=== PATIENT | female | born 1975 | race Caucasian/White ===

== ENCOUNTER → 2017-03-25 16:52 | Outpatient (CLI) | payer BC, SELFPAY ==
--- NOTE | 2017-03-25 17:00 | RAD_ITS ---
STUDY: X-RAY - SACRUM/COCCYX REASON FOR EXAM: Female, 42 years old. Pelvic pain after skiing TECHNIQUE: 3 view(s) of the sacrum and coccyx were obtained. COMPARISON: None. FINDINGS: Normal bilateral sacroiliac joints. Normal visualized sacral ala and fused sacral bodies. Normal sacrococcygeal junction with a normal angulation. Normal coccygeal segments. The presacral soft tissue structures are unremarkable. Tubal ligation RAD/Sacrum-Coccyx min 2 Views IMPRESSION: Normal x-rays of the sacrum and coccyx. Electronically Signed: Antonio Patel DO at 17:26 EST Tel , Service support ,
--- NOTE | 2017-03-25 17:00 | RAD_ITS ---
STUDY: X-RAY - PELVIS REASON FOR EXAM: Female, 42 years old. Pelvic pain TECHNIQUE: One view of the pelvis was obtained. COMPARISON: None. FINDINGS: There is a non-specific bowel gas pattern. Normal visualized soft tissue structures. Normal bilateral iliac wings, sacroiliac joints and visualized sacrum. Normal visualized bilateral superior and inferior pubic rami. Normal pubic symphysis. Normal ischial tuberosities. Normal visualized right femoral head. Normal right acetabulum. Normal right hip joint. Normal visualized left femoral head. Normal left acetabulum. Normal left hip joint. RAD/Pelvis 1 or 2 Views IMPRESSION: Normal x-ray examination of the pelvis. Electronically Signed: Antonio Patel DO at 17:29 EST Tel , Service support ,
--- NOTE | 2017-03-25 17:00 | RAD_ITS ---
STUDY: X-RAY - LUMBAR SPINE REASON FOR EXAM: Female, 42 years old. Low back pain after skiing TECHNIQUE: 5 view(s) of the lumbar spine were obtained. COMPARISON: None FINDINGS: Normal lumbar lordosis. There is no substantial scoliosis. There is a normal alignment of the vertebrae. Normal vertebral bodies and endplates. Normal disc space heights. The soft tissue structures are unremarkable. RAD/L/S Spine Min 4 Views IMPRESSION: Normal x-ray examination of the lumbar spine. Electronically Signed: Antonio Patel DO at 17:28 EST Tel , Service support ,
--- NOTE | 2017-03-25 17:00 | RAD_ITS ---
STUDY: X-RAY - LEFT FEMUR REASON FOR STUDY: Female, 42 years old. Left femur pain after skiing TECHNIQUE: Radiological exam, femur, minimum 2 views COMPARISON: None. FINDINGS: Normal visualized femur. Normal visualized soft tissue structure. RAD/Femur Min 2 Views IMPRESSION: Normal x-ray examination of the femur. Electronically Signed: Antonio Patel DO at 17:26 EST Tel , Service support ,
== END ==
PROVIDERS: Family Provider Internal Medicine; PCP Internal Medicine; Visit Provider Internal Medicine
DX: M54.5 Low back pain (principal); M25.552 Pain in left hip
CPT/HCPCS: 72110; 72170; 72220; 73552

== ENCOUNTER → 2017-04-04 14:30 | Outpatient (CLI) | payer BC, SELFPAY ==
--- NOTE | 2017-04-04 15:15 | EMB_PTH ---
PATIENT: LEXII ACOSTA LOC: [facility] U#:[id number] AGE/SX: 49/F ROOM: RE04/04/[address]: Dr. Eliseo Huynh MD : 1975 BED: DIS: SPEC #: [id number] RECD: 04/04/17 19:24 STATUS: GASPER JULES #: [id number] MORRIS: 04/04/17 15:[address]: Eliseo Huynh DEPT: SURGICAL PATHOLOGY RECD BY: Danny Fritz ENTERED: 04/05/17 12:06 SP TYPE: ENDOM BX/C CHYNA DR: Dr. Minoo Miller, DO Tissues: Endometrium, NOS Procedures: Surgery Specimen Level IV HEADER OPERATION: Endometrial biopsy PRE-OP DIAGNOSIS: N93.9 TISSUE SUBMITTED: Endometrial biopsy MICROSCOPIC DIAGNOSIS Endometrium, biopsy: Secretory endometrium with glandular and stromal breakdown. AM:marce 04/08/17 MICROSCOPIC DESCRIPTION Slides are reviewed. GROSS DESCRIPTION Received in fixative is one container labeled with the patient's name and designated endometrial biopsy. The specimen consists of multiple irregular and elongated fragments of red-santoyo soft tissue that in aggregate measure 3 x 2 x 0.2 cm. The specimen is totally submitted in one cassette. / AM:marce 04/05/17 TC:5 CPT: 00143
[2017-04-11 11:12] LABS: HPV Reflexed? NOT INDICATED
== END ==
PROVIDERS: Family Provider Internal Medicine; PCP Internal Medicine; Visit Provider Obstetrics & Gynecology
DX: Z12.4 Encounter for screening for malignant neoplasm of cervix (principal); N93.9 Abnormal uterine and vaginal bleeding, unspecified
CPT/HCPCS: 88175; 88305; G0145

== ENCOUNTER → 2017-06-12 08:27 | Outpatient (CLI) | payer BC, SELFPAY ==
--- NOTE | 2017-06-12 08:30 | US_ITS ---
STUDY: ABDOMINAL ULTRASOUND - LEFT UPPER QUADRANT REASON FOR VISIT: Female, 42 years old. Thrombocytosis. TECHNIQUE: Ultrasound evaluation of the right upper quadrant was performed with real-time and static zaldivar-scale imaging. TECHNICAL QUALITY: Adequate. COMPARISON: None. FINDINGS: Spleen: The spleen is not enlarged. It measures 9.8 cm x 2.5 cm x 3.5 cm. It is unremarkable. Left Kidney: Normal size of the left kidney. The left kidney measures 9 cm x 5.3 cm x 5.7 cm. Normal renal cortex. The left cortex measures 1.3 cm. There is no demonstrated renal mass or cyst. There is no left hydronephrosis. US/Spleen IMPRESSION: Normal left upper quadrant ultrasound examination. Electronically Signed: Sergio Everett MD at 10:15 EDT Tel [phone], Service support ,
--- NOTE | 2017-06-12 08:30 | US_ITS ---
STUDY: THYROID ULTRASOUND REASON FOR EXAM: Female, 42 years old. Nodules TECHNIQUE: Ultrasound evaluation of the thyroid was performed with real-time and static zaldivar-scale imaging. COMPARISON: 09/14/2015 FINDINGS: RIGHT LOBE: The right lobe of the thyroid gland measures 4.8 x 1.6 x 1.2 cm. There is a homogeneous echotexture. A stable ovoid well-defined partially cystic and partially solid nodule is present in the inferior right thyroid lobe that measures 11 x 7 x 8 mm. A stable ovoid solid centrally hyperechoic nodule is present in the posterior right thyroid lobe that measures 5 x 4 mm. LEFT LOBE: The left lobe of the thyroid gland measures 4.5 x 1.6 x 1.0 cm. There is a homogeneous echotexture. 2 stable adjacent solid nodules are present in the left thyroid lobe that measure 8 x 5 and 9 x 5 mm. A stable centrally cystic nodule is present in the lower left thyroid lobe that measures 7 x 3 x 3 mm. ISTHMUS: The isthmus measures 3 mm. . US/Thyroid IMPRESSION: Stable bilateral thyroid nodules. No new suspicious lesions are seen. Electronically Signed: Jose Landry MD at 4:22 EDT Tel , Service support ,
== END ==
PROVIDERS: Family Provider Internal Medicine; PCP Internal Medicine; Visit Provider Internal Medicine
DX: E04.1 Nontoxic single thyroid nodule (principal); D47.3 Essential (hemorrhagic) thrombocythemia
CPT/HCPCS: 76536; 76705

== ENCOUNTER → 2017-11-07 16:29 | Outpatient (CLI) | payer BC, SELFPAY ==
[2017-11-13 11:23] LABS: HPV Reflexed? NOT INDICATED
== END ==
PROVIDERS: Visit Provider Obstetrics & Gynecology
DX: R87.615 Unsatisfactory cytologic smear of cervix (principal); Z12.4 Encounter for screening for malignant neoplasm of cervix
CPT/HCPCS: 88175; G0145

== ENCOUNTER → 2018-02-24 11:05 | Outpatient (CLI) | payer BC, SELFPAY ==
--- NOTE | 2018-02-24 11:11 | RAD_ITS ---
STUDY: X-RAY - RIGHT KNEE REASON FOR EXAM: Female, 43 years old. Right-sided knee pain after skiing injury yesterday. TECHNIQUE: 4 view(s) of the knee. COMPARISON: Prior comparison studies are not available for review at this time. FINDINGS: Patient has had previous surgery. Interference screw is visible in distal femur in a configuration suggestive of anterior cruciate ligament repair. Screw is also visible in the proximal tibia. A lucency is visible in the proximal tibia also probably related to anterior cruciate ligament repair. Normal proximal tibiofibular articulation. There is no demonstrated fracture. Normal medial femorotibial compartment. Chondrocalcinosis is visible lateral femoral tibial compartment. There is mild degenerative arthrosis of the patellofemoral articulation. There is a moderate volume joint effusion. There is soft tissue swelling. RAD/Knee 4 or More Views IMPRESSION: 1. Postoperative appearance of the right knee. 2. No definite evidence for acute fracture. 3. Joint effusion. Electronically Signed: Linda Farrar MD at 11:37 EST , Service support ,
== END ==
PROVIDERS: Family Provider Internal Medicine; PCP Internal Medicine; Referring Provider Internal Medicine; Visit Provider Internal Medicine
DX: M25.561 Pain in right knee (principal)
CPT/HCPCS: 73564

== ENCOUNTER → 2018-03-21 15:57 | Outpatient (CLI) | payer BC, SELFPAY ==
--- NOTE | 2018-03-21 16:04 | MRI_ITS ---
STUDY: MRI RIGHT KNEE REASON FOR EXAM: Medial and posterior knee pain, instability, skiing injury 2 weeks ago, surgery in 1997. TECHNIQUE: Standardized fat and water weighted pulse sequences were obtained in all 3 orthogonal planes. COMPARISON: Radiographs 02/24/2018. FINDINGS: There is fraying of the inferior articular surface of the posterior horn of the medial meniscus (proton-density sagittal image 28). Normal hyaline cartilage of the medial femorotibial compartment. There is a small nondisplaced subchondral fracture of the posterior aspect of the medial tibial plateau (proton-density coronal images 7, 8). There is a bone contusion of the medial femoral condyle (T2 coronal images 9-13). There is a tear of the medial collateral ligament (T2 coronal image 13). Normal distal semimembranosus, gracilis and semitendinosus tendons. There is attrition of the free margin of the posterior horn of the lateral meniscus (T2 sagittal images 7-9), either secondary to radial tear or partial lateral meniscectomy. Normal hyaline cartilage of the lateral femorotibial compartment. There is a small impaction fracture of the posterior aspect of the lateral tibial plateau (T2 sagittal images 5, 6). There is a small subchondral bone contusion of the lateral femoral condyle (T2 coronal images 14-16). Normal proximal tibiofibular articulation. Normal lateral collateral (fibular) ligament. Normal popliteus tendon. Normal biceps femoris tendon. There is discontinuity of the anterior cruciate ligament graft proximal to the tibial bone tunnel (T2 sagittal image 12). Normal posterior cruciate ligament (PCL). Normal congruent patellofemoral articulation. There is a small chondral tear of the median ridge of the patella (T2 sagittal image 13; T2 axial image 8). Normal medial and lateral patellar retinaculum. Normal visualized quadriceps tendon. There are postoperative changes of the patellar tendon. There is mild postoperative scarring in Hoffa's fat pad. There is a small joint effusion. There is edema in the medial subcutis adipose space. There are postoperative changes of the distal femur and proximal tibia from anterior cruciate ligament reconstruction. MRI/Lower Ext Joint Only (Routine) IMPRESSION: Tear of the anterior cruciate ligament graft. Medial collateral ligament tear. Attrition of the posterior horn of the lateral meniscus, either secondary to radial tear or partial lateral meniscectomy. Small nondisplaced fractures of the medial and lateral tibial plateau, and bone contusions of the medial and lateral femoral condyles. Fraying of the posterior horn of the medial meniscus. Small chondral tear of the patella. Small joint effusion. Electronically Signed: Chacho Wynn MD at 7:39 EST Tel , Service support ,
== END ==
PROVIDERS: Family Provider Internal Medicine; PCP Internal Medicine
DX: M23.51 Chronic instability of knee, right knee (principal); M25.561 Pain in right knee
CPT/HCPCS: 73721

== ENCOUNTER → 2018-05-15 14:46 | Outpatient (CLI) | payer BC, SELFPAY ==
--- NOTE | 2018-05-15 14:49 | VDLE_ITS ---
Reason For Study: pain RIGHT LEFT GSV is normal. CFV is compressible, spontaneous, phasic, CFV is compressible, spontaneous, phasic, competent, and demonstrates normal competent and demonstrates normal augmentation. augmentation. FV is compressible, spontaneous, phasic, competent and demonstrates normal augmentation. POP V is compressible, spontaneous, phasic, competent and demonstrates normal augmentation. T/P Trunk is compressible. PTV is compressible. RT PerV is compressible. Procedure Exam performed in department. The exam was diagnostic. A preliminary report was called and/or faxed to Shireen Santillan PA-C. Interpretation Summary Deep veins of the right lower extremity are patent and compressible segmentally. There is no evidence of right lower extremity deep vein thrombosis. Valvular competence appears intact within the proximal deep venous system on the right . The right greater saphenous vein appears patent and compressible segmentally. Ordering Physician: SHIREEN SANTILLAN Performed By: Imtiaz Matta RVT
== END ==
PROVIDERS: Family Provider Internal Medicine; PCP Internal Medicine
DX: S83.511D Sprain of anterior cruciate ligament of right knee, subsequent encounter (principal); Z48.02 Encounter for removal of sutures; Z47.89 Encounter for other orthopedic aftercare; M22.41 Chondromalacia patellae, right knee; M25.461 Effusion, right knee; M79.604 Pain in right leg
CPT/HCPCS: 93971

== ENCOUNTER → 2018-05-20 15:49 | Outpatient (CLI) | payer BC, SELFPAY ==
[2018-05-20 17:18] LABS: Hematocrit 34.7 % (37-47); Hemoglobin 11.2 g/dl (12.0-15.0); Mean Corp Hgb Conc 32.3 g/gl (32-36); Mean Corpuscular Hgb 31.1 pg (27.0-32.0); Mean Corpuscular Volume 96.4 fL (81-99); Platelet Count 604 K/mm3 (150-450); RBC Distribution Width CV 11.8 % (11.6-14.6); RBC Distribution Width SD 40.5 fl (35.1-43.9); White Blood Count 8.7 K/mm3 (4.4-11.0)
[2018-05-20 17:19] LABS: Scan Indicated on CBC? Y/N NO
[2018-05-20 17:37] LABS: Erythrocyte Sedimentation Rate 96 mm/hr (0-20)
[2018-05-20 18:19] LABS: Anion Gap 7 (5-15); BUN 10 mg/dL (7-18); BUN/Creat Ratio 21.9 RATIO (10-20); Calcium,Total 9.1 mg/dL (8.5-10.1); Chloride 102 mmol/L (98-107); Creatinine, Serum 0.46 mg/dL (0.55-1.02); EST Glomerular Filtration Rate 158 mL/min (>60); Est Glom Filt Rate - Afr Amer 192 mL/min (>60); Glucose 93 mg/dL (74-106); Potassium 3.7 mmol/L (3.5-5.1); Sodium Level 139 mmol/L (136-145)
== END ==
PROVIDERS: Family Provider Internal Medicine; PCP Internal Medicine; Referring Provider Orthopaedic Surgery; Visit Provider Orthopaedic Surgery
DX: M79.604 Pain in right leg (principal); S83.511D Sprain of anterior cruciate ligament of right knee, subsequent encounter; M25.461 Effusion, right knee
CPT/HCPCS: 36415; 80048; 85027; 85652; 86140

== ENCOUNTER 2018-11-16 17:45 | Emergency (ER) | payer BC, SELFPAY ==
[2018-11-16 17:45] VITALS: BP 132/81; PULSE 108; RESP 16
[2018-11-16 17:47] VITALS: BP 132/81; PULSE 108; RESP 16; TEMP 36.8; BMI 26.6
--- NOTE | 2018-11-16 18:07 | CT_ITS ---
Exam: CT of the right knee, noncontrast. HISTORY: Right knee pain. Recent surgery. Infections and sepsis. COMPARISON: MRI 03/21/2018 which showed tear of the anterior cruciate ligament graft. FINDINGS: Postsurgical changes of ACL graft are seen with interosseous graft tunnels in the lateral femoral condyle and through the medial tibial plateau. There is an interference screw in the distal femoral condyle and a horizontal tibial metaphyseal screw in the proximal tibial metaphysis. The screw appears to extend approximately 7 to 8 mm beyond the lateral margin of the tibia. The ACL graft tunnel appears significantly more widened than typically seen. On CT scan, the integrity of the ACL graft cannot be confirmed. Intact on this exam, no definite graft material is seen. No acute fractures or dislocations. Large effusion. Cannot exclude debris within the effusion. There is generalized soft tissue swelling. There is fluid and/or bursitis anterior to the tibial tuberosity. CT/Extremity Lower without Contra IMPRESSION: Numerous abnormalities. Very widened ACL graft tunnel, and ACL graft material is not seen within the tunnel. Note however that CT scan is very limited for evaluation of knee soft tissues. Large, possibly complex effusion. Soft tissue thickening and or bursitis anterior to the tibial tuberosity. The proximal tibial screw extends several millimeters beyond the medial tibial cortex. Electronically Signed: Josh Cosby MD at 18:58 EDT , Service support ,
--- NOTE | 2018-11-16 18:08 | ED.DCSUM_ITS ---
History of Present Illness Chief Complaint: Lower Extremity Injury Detail of Chief Complaint: Right knee pain Informant: Patient Onset: Days Current Severity: Moderate Maximum Severity: Moderate Narrative: Patient had a right knee surgery in April after suffering an ACL injury. Her surgery was done by [facility] in [place]. Her recovery was complicated by septic knee requiring washout and antibiotics. Patient was released to go back to work on October 28. Over the past 5 to 6 days she has noted a painful swelling along the inferior aspect of the incision line. Area was more painful today so she came to the emergency room for evaluation. She has not noted fever or chills. Past Medical History - Allergies and Home Meds Allergies/Adverse Reactions: Allergies No Known Allergies Allergy (Verified 11/16/18 17:46) Prior records reviewed: Yes Past Medical History: - - Reviewed Surgical History: - - Right knee Lives: Spouse/ Significant Other Smoking Status: Never smoker Review of Systems General: Denies: Chills, Fever Eyes: Denies: Visual changes - bilaterally ENT: Denies: Bilateral ear pain Cardiovascular: Denies: Chest pain Respiratory: Denies: Dyspnea Gastrointestinal: Denies: Abdominal pain, Nausea, Vomiting Musculoskeletal: Reports: Arthralgias, Extremity Pain Skin: Denies: Rash Neurological: Denies: Weakness Hematologic: Denies: Easy bruising, Easy bleeding Allergy: Denies: Uticaria Physical Exam Vital Signs/Narrative: Vital Signs Temp Pulse Resp BP 11/16/18 17:47 98.2 F 108 H 16 132/81 H 11/16/18 17:45 108 H 16 132/81 H Inital Vital Signs reviewed: Yes General: Well nourished, Well developed Eyes: Perrl, EOMI ENT: Moist mucous membranes Neck: Supple Cardiovascular: Regular rate, Regular rhythm Respiratory: No distress, CTA bilaterally Abdomen: Soft, Nontender Extremities: - - There is a focal, 4 cm diameter area of swelling along the inferior aspect of her vertical knee incision, over the tibial tuberosity region. Area is tender to palpation. She has no tenderness at the joint line of the knee. There is no erythema or warmth. Strong distal pulses are noted. Skin: Normal color Neurological: Alert, Oriented x3 Psychological: Normal affect Diagnostic/Tx/Re-eval Impressions Lower Extremity CT 11/16/18 18:07 IMPRESSION: Numerous abnormalities. Very widened ACL graft tunnel, and ACL graft material is not seen within the tunnel. Note however that CT scan is very limited for evaluation of knee soft tissues. Large, possibly complex effusion. Soft tissue thickening and or bursitis anterior to the tibial tuberosity. The proximal tibial screw extends several millimeters beyond the medial tibial cortex. Electronically Signed: Josh Cosby MD at 18:58 EDT , Service support , 11/16/18 18:07 CT Lower [Extremity Lower without Contra] [CT] Stat Laboratory Results 11/16/18 11/16/18 18:13 18:13 WBC 9.2 RBC 3.88 L Hgb 12.2 Hct 36.0 L MCV 92.8 MCH 31.4 MCHC 33.9 RDW Std Deviation 45.7 H RDW Coeff of Mata 13.2 Plt Count 453 H MPV 8.9 Immature Gran % (Auto) 0.200 Neut % (Auto) 67.4 Lymph % (Auto) 17.7 L Mellette % (Auto) 10.3 H Eos % (Auto) 3.6 Baso % (Auto) 0.8 Absolute Neuts (auto) 6.2 Absolute Lymphs (auto) 1.63 Nucleated RBC % 0 ESR 71 H Sodium 138 Potassium 3.7 Chloride 107 Carbon Dioxide 28.0 Anion Gap 3 L BUN 9 Creatinine 0.66 Estim Creat Clear Calc 101.83 Est GFR (MDRD) Af Amer 125 Est GFR (MDRD) Non-Af 103 BUN/Creatinine Ratio 13.6 Glucose 106 Calcium 9.0 C-React Prot Ext Range 52.70 H - Medical Decision Making She was given morphine and Zofran for pain. Test results are discussed with patient and at bedside. I was able to use ultrasound to scan over the area of interest in hopes of determining bursitis versus soft tissue thickening. There did appear to be an area of fluid collection consistent with bursitis although some debris was noted within. I attempted to aspirate this with an 18- gauge needle but did not get anything returned. This area lies directly over 1 of her orthopedic screws into her tibia. I do not want to be too aggressive and cause any further infection. She is covered with antibiotics and will follow up with her orthopedist in [place]. ED Disposition - Plan for ED Patient: Disposition: Home or Assisted Living Diagnosis: Bursitis Instructions: Bursitis Prescriptions: Clindamycin [Cleocin] 300 mg PO 4X/DAY #80 cap Prescription Printed Oxycodone HCl/Acetaminophen [Percocet 5/325] 1 tab PO Q6H PRN PRN 3 Days #12 tab PRN Reason: Pain Prescription Printed Additional Instructions: Follow-up with [facility] as soon as possible.
[2018-11-16] MEDS: Ondansetron 4 MG/2 ML Vial IV (18:16)
[2018-11-16] MEDS: Morphine 4 MG/ML Syringe IV (18:16)
[2018-11-16] MEDS: 0.9% Normal Saline 1,000 ML 150 ML IV (18:17)
[2018-11-16 18:32] LABS: Absolute Lymphocyte Count 1.63 X10^3/uL (0.83-4.51); Absolute Neutrophil Count 6.2 X10^3/uL (2.0-7.7); Basophil# 0.07 X10^3/uL; Basophil% 0.8 % (0-1); Eosinophil# 0.33 X10^3/uL; Eosinophils% 3.6 % (0-5); Hemoglobin 12.2 g/dL (12.0-15.0); Lymphocyte # 1.63 X10^3/ul (4.0); Lymphocyte % 17.7 % (19-41); Mean Corp Hgb Conc 33.9 g/dL (32-36); Mean Corpuscular Hgb 31.4 pg (27.0-32.0); Mean Corpuscular Volume 92.8 fL (81-99); Mean Platelet Vol. 8.9 fl (6.2-12.0); Monocyte# 0.95 X10^3/uL; Monocyte% 10.3 % (0-10); NRBC Flagged by Analyzer 0 % (0-5); Neutrophil # 6.22 X10^3/uL (2.7-7.7); Neutrophil % 67.4 % (47-70); Platelet Count 453 K/mm3 (150-450); RBC Distribution Width CV 13.2 % (11.6-14.6); RBC Distribution Width SD 45.7 fl (35.1-43.9); Red Blood Count 3.88 M/mm3 (4.2-5.4); White Blood Count 9.2 K/mm3 (4.4-11.0)
[2018-11-16 18:38] LABS: Erythrocyte Sedimentation Rate 71 mm/hr (0-20)
[2018-11-16 19:28] LABS: Anion Gap 3 (5-15); BUN 9 mg/dL (7-18); BUN/Creat Ratio 13.6 RATIO (10-20); Chloride 107 mmol/L (98-107); Creatinine, Serum 0.66 mg/dL (0.55-1.02); EST Glomerular Filtration Rate 103 mL/min (>60); Est Glom Filt Rate - Afr Amer 125 mL/min (>60); Estimated Creatinine Clearance 101.83 ml/min; Glucose 106 mg/dL (74-106); Potassium 3.7 mmol/L (3.5-5.1); Sodium Level 138 mmol/L (136-145)
[2018-11-16] MEDS: Clindamycin HCl 150 MG Capsule 300 MG PO (20:44)
[2018-11-16 20:50] VITALS: BP 127/85; PULSE 85; RESP 14; O2SAT 100
== END 2018-11-16 20:50 | disposition home or self-care (01) ==
PROVIDERS: Emergency Provider Emergency Medicine; Family Provider Internal Medicine; PCP Internal Medicine
DX: M71.9 Bursopathy, unspecified (principal)
CPT/HCPCS: 73700; 80048; 85025; 85652; 86140; 96361; 96374; 96375; 99285; J7030; A4216; J2405

== ENCOUNTER 2018-12-28 01:47 | Emergency (ER) | payer BC, SELFPAY ==
[2018-12-28 01:47] VITALS: BP 117/73; PULSE 100; RESP 27; TEMP 36.8; O2SAT 96; BMI 26.6
--- NOTE | 2018-12-28 01:54 | RAD_ITS ---
HISTORY: SOB AND PRODUCTIVE COUGH X3 DAYS EXAMINATION/TECHNIQUE: XR Chest 2 Views: COMPARISON: CT chest 02/13/2016 FINDINGS: Cardiac telemetry leads in place. Normal heart size. Upper lobe mild emphysema. Lower and medial left hemithorax focal emphysematous bulla which is oval in shape and measures 8 cm in length. Right basilar small calcified granuloma. No vascular congestion, pleural effusion, or acute pulmonary infiltration. No pneumothorax. Remote fractures of the lower right ribs. RAD/Chest PA and Lateral IMPRESSION: 1. No acute cardiopulmonary disease. 2. Emphysema. Old granulomatous disease. at 0223 Reported and signed by: Jas Cottrell MD Electronically Signed: Jas Cottrell, at 2:22 EST Tel , Service support ,
--- NOTE | 2018-12-28 01:59 | ED.VIS.DYS ---
History of Present Illness Chief Complaint: Shortness of Breath Informant: Patient Onset: Days - 3 Activity at onset: - - coughing Timing: Continuous Quality: Wheezing Current Severity: Moderate Maximum Severity: Moderate Worsened by: Coughing, Lying flat Relieved by: Albuterol - only a little Associated Symptoms: Cough, Green sputum. Negative for: Bloody Sputum, Ear pain, Fever, Sore throat, Sweats Chest Pain: Tightness Narrative: History of mild exercise-induced asthma that has not flared up in a long time but seems to be involved with this illness for the last 3 days. No fevers. No neck pain or stiffness. Her chest feels tight when she is wheezing. Has been using her albuterol inhaler a lot but although it is helping with the wheezing, it is not helping much with the bronchospasm. States her lungs hurt from coughing so much. No swelling in the legs associated with this illness. - Past Medical History (1) Exercise-induced asthma Status: Chronic Past Medical History - Allergies and Home Meds Allergies/Adverse Reactions: Allergies No Known Allergies Allergy (Verified 12/28/18 02:08) Primary Care Physician: Minoo Miller DO [Primary Care Provider] - Surgical History: - - Right knee Lives: Spouse/ Significant Other Smoking Status: Never smoker Review of Systems General: Reports: Malaise. Denies: Chills, Fever, Sweats Eyes: Denies: Visual changes - bilaterally, Diplopia ENT: Denies: Rhinorrhea, Sore throat Cardiovascular: Denies: Chest pain, Palpitations Respiratory: Reports: Dyspnea, Cough, Sputum. Denies: Dyspnea on exertion, Orthopnea - More increased coughing with lying down, which leads to increased dyspnea Gastrointestinal: Denies: Abdominal pain, Nausea, Vomiting, Diarrhea, Melena, Hematochezia Genitourinary: Denies: Dysuria, Hematuria, Frequency Musculoskeletal: Denies: Back pain, Swelling, Extremity Pain Skin: Denies: Rash, Wounds Neurological: Denies: Headache, Weakness, Numbness Physical Exam Vital Signs/Narrative: Vital Signs Temp Pulse Resp BP Pulse Ox 12/28/18 01:47 EST 98.2 F 100 27 H 117/73 96 Inital Vital Signs reviewed: Yes General: Well nourished, Well developed, No Acute Distress Head: Normocephalic, Atraumatic Eyes: Perrl, EOMI ENT: Moist mucous membranes, No rhinorrhea Neck: Supple, Nontender, No lymphadenopathy Cardiovascular: Regular rate, Regular rhythm, No murmurs Respiratory: No distress, CTA bilaterally, Chest nontender Extremities: Nontender, No edema. Negative for: Calf Tenderness Skin: Normal color, No rash, No Trauma Neurological: Alert, Oriented x3, Cranial nerves II-XII grossly intact, Normal Strength, Normal Sensation Psychological: Normal affect, Normal Mood Diagnostic/Tx/Re-eval Chest X-Ray - ED: 2 View, Read by ED Physician, Read by Radiologist, Normal, Heart, Lungs, Mediastinum, Bony Structures, No Acute Disease Clinical Impression(s) from Imaging Studies Chest X-Ray 12/28/18 01:54 EST IMPRESSION: 1. No acute cardiopulmonary disease. 2. Emphysema. Old granulomatous disease. at 0223 Reported and signed by: Jas Cottrell MD Electronically Signed: Jas Cottrell, at 2:22 EST Tel , Service support , Treatment - Dyspnea: Albuterol, Atrovent Repeat Evaluation: Improved With Ambulation: Asymptomatic - Medical Decision Making Much better after DuoNeb treatment. Vitals are stable and she is not hypoxic. No sign of pneumonia on chest x-ray. Therefore at this time antibiotics are not indicated given the history and exam. I recommend steroids, she was given the first dose of prednisone here, and continued beta agonist as needed, as well as a cough suppressant, I offered her Robitussin-AC she is amenable to that and also is requesting a prescription for a nebulizer which is given to her along with a prescription for albuterol vials. Advised to follow-up in 1 to 2 weeks if she is not improving with regards to the cough for reevaluation. ED Disposition - Plan for ED Patient: Disposition: Home or Assisted Living Diagnosis: Acute viral bronchitis, Exercise-induced asthma with acute exacerbation Instructions: ASTHMA, Acute (Adult), BRONCHITIS, No Antibiotic (Adult) Prescriptions: Nebulizer [Aeroneb Go Nebulizer] 1 ea MC 4X/DAY PRN PRN #1 ea PRN Reason: Wheezing Prescription Printed Prednisone [Deltasone] 40 mg PO DAILY #12 tab Prescription Printed Guaifenesin/Codeine [Robitussin AC] 10 ml PO Q6H PRN PRN #4 oz PRN Reason: Cough Prescription Printed Albuterol Aerosols [Ventolin Aerosols] 2.5 mg INHALATION Q4H PRN #25 vial Prescription Printed Referrals: Minoo Miller, [Primary Care Provider] - 1-2 Weeks (If not improving)
[2018-12-28] MEDS: Ipratropium/Albuterol Sulfate 3 ML AMPUL.NEB INHALATION (02:04)
[2018-12-28 02:07] VITALS: BP 117/80; PULSE 88; PULSE 91; RESP 18; RESP 19; TEMP 36.8; O2SAT 99
[2018-12-28] MEDS: predniSONE 20 MG Tablet 40 MG PO (02:11)
[2018-12-28 02:13] VITALS: PULSE 100; RESP 19; O2SAT 100
[2018-12-28] MEDS: guaiFENesin/Codeine 5 ML UDC 10 ML PO (03:06)
[2018-12-28 03:08] VITALS: BP 123/85; PULSE 99; RESP 15; O2SAT 97
== END 2018-12-28 03:11 | disposition home or self-care (01) ==
PROVIDERS: Emergency Provider Emergency Medicine; Family Provider Internal Medicine; PCP Internal Medicine
DX: J20.8 Acute bronchitis due to other specified organisms (principal); J45.901 Unspecified asthma with (acute) exacerbation; J45.990 Exercise induced bronchospasm
CPT/HCPCS: 71046; 94640; 99282

== ENCOUNTER → 2019-03-16 13:56 | Outpatient (CLI) | payer BC, SELFPAY ==
--- NOTE | 2019-03-16 14:08 | RAD_ITS ---
HISTORY: NECK PAIN TECHNIQUE: Cervical spine 3 views Number of images including paperwork: 3 COMPARISON: 06/01/2014 FINDINGS: VERTEBRAE: No acute fracture. VERTEBRAL ALIGNMENT: No traumatic subluxation. DISKS AND JOINTS: No significant degenerative changes. SOFT TISSUES: Unremarkable paraspinous soft tissues. RAD/Cerv Spine 2 or 3 Views IMPRESSION: Unremarkable cervical spine. at 2344 Reported and signed by: Zari Tobin MD Electronically Signed: Zari Tobin MD at 23:44 EST Tel , Service support ,
--- NOTE | 2019-03-16 14:09 | RAD_ITS ---
HISTORY: COUGH ADDITIONAL HISTORY: None provided. COMPARISON: 12/28/2018 TECHNIQUE: Frontal and lateral chest radiographs. Number of images including paperwork: 2 FINDINGS: LUNGS AND PLEURA: Mild hyperinflation. No consolidation, mass or pleural effusion. Bulla in the inferomedial left hemithorax appears similar. Calcified right lower lobe granuloma. CARDIAC SILHOUETTE: Unremarkable. MEDIASTINUM AND SCAR: Unremarkable. UPPER ABDOMEN: Unremarkable. SKELETON AND SOFT TISSUES: No acute findings. OTHER DEVICES AND HARDWARE: None. RAD/Chest PA and Lateral IMPRESSION: No acute cardiopulmonary abnormality. at 2345 Reported and signed by: Zari Tobin MD Electronically Signed: Zari Tobin MD at 23:45 EST Tel , Service support ,
== END ==
PROVIDERS: PCP Internal Medicine; Referring Provider Internal Medicine; Visit Provider Internal Medicine
DX: M54.2 Cervicalgia (principal); R05 Cough
CPT/HCPCS: 71046; 72040

== ENCOUNTER → 2019-03-27 07:11 | Outpatient (CLI) | payer BC, SELFPAY ==
--- NOTE | 2019-03-27 07:27 | MRI_ITS ---
STUDY: MRI BRAIN WITH AND WITHOUT CONTRAST REASON FOR EXAM: Female, 44 years old. chiari malformation. H/A and numbness in arms with coughing TECHNIQUE: Standardized multiplanar fat and water weighted pulse sequences were obtained. 15ml Dotarem via IV was administered for the contrast portion of the examination. COMPARISON: Brain MRI 04/03/2013. FINDINGS: Normal size of the ventricles and extra-axial spaces for the patient''s age. Normal white matter tracts of the supratentorial brain. There is no evidence for recent intracranial ischemia or other cause of cytotoxic edema on diffusion weighted imaging (DWI). Normal T2* images of the brain without demonstrated susceptibility artifact. There is no demonstrated hemosiderin stain. Normal bilateral basal ganglia. Normal thalami. There is no extra-axial fluid accumulation. Normal flow voids within the major intracranial circulation suggesting patency by spin echo criteria. Normal venous enhancement. There is no enhancing intra-axial or extra-axial abnormality. Normal sella turcica, pituitary gland, infundibular stalk, optic chiasm and hypothalamus. Normal tectal plate and pineal gland. Normal midbrain, belle and medulla. Normal cerebellum. Normal basal cisterns. Normal bilateral temporal bones. Normal bilateral internal auditory canals. No demonstrated orbital abnormality, within the constraints of a routine brain study. Normal visualized paranasal sinuses. Normal calvarium and skull base. Normal visualized soft tissue structures. Normal visualized upper cervical spine. MRI/Brain W/WO Contrast IMPRESSION: Normal unenhanced and enhanced MRI of the brain. Electronically Signed: Kimberlyashwin Downing, at 10:41 EST Tel , Service support ,
== END ==
PROVIDERS: PCP Internal Medicine; Referring Provider Internal Medicine; Visit Provider Internal Medicine
DX: R51 Headache (principal)
CPT/HCPCS: 70553; A9575

== ENCOUNTER 2019-04-18 22:06 | Emergency (ER) | payer BC, SELFPAY ==
[2019-04-18 22:06] VITALS: BP 143/84; PULSE 75; RESP 18; TEMP 37.1; O2SAT 97; BMI 28.0
--- NOTE | 2019-04-18 22:08 | RAD_ITS ---
HISTORY:FALL WHILE BOWLINGL, PAIN FALL WHILE BOWLINGL, PAIN COMPARISON: None FINDINGS: # of images incl. paperwork: 3 XR Elbow Min 3 Views: Right BONE AND JOINTS: There is a depressed intra-articular fracture involving the right radial head. The lateral fracture fragment is depressed approximately 2.7 mm. SOFT TISSUES: Associated joint effusion No radiopaque foreign body. RAD/Elbow min 3 Views IMPRESSION: Intra-articular radial head fracture with depression of the lateral fracture fragment as discussed at 2244 Reported and signed by: Jacki Colvin DO Electronically Signed: Jacki Colvin DO at 22:42 EST Tel , Service support ,
[2019-04-19] VITALS: BP 138/82; PULSE 84; RESP 15; O2SAT 98
--- NOTE | 2019-04-19 00:57 | ED.VIS.GEN ---
History of Present Illness Chief Complaint: Upper Extremity Injury Narrative: Patient is a 44-year-old female who presents with a right elbow injury. She fell on steps [place] a bowling alley and injured her right elbow. No head injury no loss of consciousness. She is not anticoagulated. She denies any other injuries. She rates her pain is 8 out of 10. Her pain is worse with movement. Past Medical History - Allergies and Home Meds Allergies/Adverse Reactions: Allergies No Known Allergies Allergy (Verified 12/28/18 02:08) Primary Care Physician: Minoo Miller DO [Primary Care Provider] - Past Medical History: - - Anxiety Surgical History: - - Right knee Smoking Status: Never smoker Review of Systems All systems negative except as indicated General: Denies: Fever Cardiovascular: Denies: Chest pain Respiratory: Denies: Dyspnea Gastrointestinal: Denies: Nausea, Vomiting Musculoskeletal: Reports: Extremity Pain Skin: Denies: Rash Neurological: Denies: Headache Physical Exam Vital Signs/Narrative: Vital Signs Temp Pulse Resp BP Pulse Ox 04/19/19 00:00 84 15 138/82 H 98 04/18/19 22:06 98.8 F 75 18 143/84 H 97 Inital Vital Signs reviewed: Yes General: Well nourished Head: Normocephalic Eyes: EOMI ENT: Moist mucous membranes Neck: Supple Cardiovascular: Regular rate Respiratory: No distress Extremities: - - Patient has tenderness of the right elbow worse with range of motion no obvious bony deformity no tenderness of the right shoulder wrist or hand she has normal sensation distally no pain of the left upper extremity or bilateral lower extremities on examination or with range of motion. Skin: Normal color Neurological: Alert Psychological: Normal affect Diagnostic/Tx/Re-eval Impressions Elbow X-Ray 04/18/19 22:08 IMPRESSION: Intra-articular radial head fracture with depression of the lateral fracture fragment as discussed at 2244 Reported and signed by: Jacki Colvin DO Electronically Signed: Jacki Colvin DO at 22:42 EST Tel , Service support , 04/18/19 22:08 Elbow min 3 Views [RAD] Stat - Medical Decision Making X-ray as above shows a radial head fracture. Patient was placed in a posterior Ortho-Glass splint fabricated by the emergency physician and given a sling. She was given Harriet for acute pain control as well as a prescription for the same. She will follow-up with orthopedics and has previously seen Dr. Kurtz. She was advised on supportive care including rest, ice, elevation. ED Disposition - Plan for ED Patient: Disposition: Home or Assisted Living Diagnosis: Radial head fracture Instructions: Radial Head Fracture Prescriptions: Hydrocodone Bitart/Apap 5-325 [Harriet 5MG-325MG] 1 tab PO Q6H PRN PRN 3 Days #12 tab PRN Reason: Pain Prescription Printed Referrals: Minoo Miller DO [Primary Care Provider] -
[2019-04-19] MEDS: HYDROcodone Bitartrate/Apap 5/325 Tablet PO (01:18)
== END 2019-04-19 01:26 | disposition home or self-care (01) ==
PROVIDERS: Emergency Provider Emergency Medicine; PCP Internal Medicine
DX: S52.121A Displaced fracture of head of right radius, initial encounter for closed fracture (principal); W10.9XXA Fall (on) (from) unspecified stairs and steps, initial encounter; Y93.54 Activity, bowling; Y92.39 Other specified sports and athletic area as the place of occurrence of the external cause; Y99.8 Other external cause status; F41.9 Anxiety disorder, unspecified
CPT/HCPCS: 29405; 73080; 99283

== ENCOUNTER → 2019-05-06 09:18 | Outpatient (CLI) | payer BC, SELFPAY ==
[2019-04-18 22:06] VITALS: BMI 28.0
--- NOTE | 2019-05-06 09:23 | VDUE_ITS ---
Reason For Study: Arm swelling Right Proximal Right jugular vein is spontaneous, widely patent, phasic, with no intraluminal echogenicity noted. Right subclavian vein is spontaneous, widely patent, phasic, with no intraluminal echogenicity noted. Right Lower Arm Right radial vein is compressible. Right ulnar vein is compressible. Right Arm Right axillary vein is spontaneous, patent, phasic, competent, compressible and demonstrates augmentation. Right brachial vein is compressible. Right cephalic vein is compressible. Right basilic vein is compressible. Patient Safety Prelim to Fast. Interpretation Summary Deep veins of the right upper extremity are patent and compressible segmentally. There is no evidence of deep vein thrombosis. The superficial veins of the right upper extremity, the basilic and cephalic veins, are patent and compressible. There is no evidence of right upper extremity superficial thrombophlebitis involving the veins imaged. Ordering Physician: Minoo Miller Referring Physician: Minoo Miller Performed By: Swati Holly RVT ?
== END ==
PROVIDERS: PCP Internal Medicine; Referring Provider Internal Medicine; Visit Provider Internal Medicine
DX: M79.89 Other specified soft tissue disorders (principal)
CPT/HCPCS: 93971

== ENCOUNTER 2019-11-08 19:20 | Emergency (ER) | payer BC, SELFPAY ==
[2019-11-08 19:20] VITALS: BP 123/73; PULSE 73; RESP 16; TEMP 36.3; O2SAT 98; BMI 25.6
--- NOTE | 2019-11-08 19:57 | ED.DCSUM_ITS ---
History of Present Illness Chief Complaint: Laceration Informant: Patient Narrative: 44-year-old female presenting with laceration to left index finger. This occurred just prior to arrival. Patient was using a hand saw to cut down branches when she inadvertently caught her finger. She is right-hand dominant. Her tetanus immunization is not up-to-date. She has bleeding controlled with direct pressure. She has no loss of function or paresthesia. - Past Medical History (1) Exercise-induced asthma Status: Chronic Past Medical History - Allergies and Home Meds Allergies/Adverse Reactions: Allergies No Known Allergies Allergy (Verified 12/28/18 02:08) Primary Care Physician: Minoo Miller DO [Primary Care Provider] - Prior records reviewed: Yes Past Medical History: - - Reviewed and problem list Surgical History: noncontributory, - - Right knee Lives: Spouse/ Significant Other Smoking Status: Never smoker Alcohol: None Drugs: None Review of Systems General: Denies: Chills, Fever, Sweats Eyes: Denies: Visual changes - bilaterally, Diplopia ENT: Denies: Rhinorrhea, Sore throat Cardiovascular: Denies: Chest pain, Palpitations Respiratory: Denies: Dyspnea, Cough, Dyspnea on exertion Gastrointestinal: Denies: Abdominal pain, Nausea, Vomiting, Diarrhea, Melena, Hematochezia Genitourinary: Denies: Dysuria, Hematuria, Frequency Musculoskeletal: Reports: - - Left index finger pain Skin: Reports: - - 2 cm laceration left index finger. Denies: Abscess Neurological: Denies: Headache, Weakness Physical Exam Vital Signs/Narrative: Vital Signs Temp Pulse Resp BP Pulse Ox 11/08/19 19:20 97.3 F L 73 16 123/73 H 98 Inital Vital Signs reviewed: Yes General: Well nourished, Well developed Head: Normocephalic, Atraumatic ENT: Moist mucous membranes, No rhinorrhea Cardiovascular: Regular rate, Regular rhythm Respiratory: No distress, CTA bilaterally Skin: Normal color, - - 2 centimeter macerated laceration to the dorsal lateral aspect of the right index finger. No tendon exposure. No loss of function. Sensation is intact. Diagnostic/Tx/Re-eval - Medical Decision Making Patient was seen and evaluated on arrival for laceration to the left index finger. She did have some tissue loss but bleeding is well controlled. Wound was explored and there is no foreign bodies. No tendon or bone exposure. Patient was anesthetized with 3 cc of lidocaine with epinephrine with good anesthesia achieved. Some of the macerated tissue was removed. 3?0 Ethilon sutures were used.wound margins. 5 sutures were used in all. Patient tolerated procedure well. She was placed in a dressing and then a finger splint. She is given wound care instructions as well as return precautions. Patient stable for discharge at this time. Impression: 1. Left index finger laceration 2.0 cm Procedures - Lacerations No standard instances Length: 24 in Depth: Sub Q Shape: Macerated Prep: Sterile Conditions, Chlorhexadine Laceration repair: Lidocaine with epi, Skin sutures, Wound explored Irrigated (ml): 500 Number of Sutures/[place]: 5 Suture Information: Ethilon - 3?0 ED Disposition - Plan for ED Patient: Disposition: Home or Assisted Living Instructions: ED Laceration Hand Referrals: Minoo Miller DO [Primary Care Provider] -
[2019-11-08] MEDS: Diphth,Pertuss(Acell),Tet Vac 0.5 ML Vial IM (20:03)
[2019-11-08] MEDS: HYDROcodone Bitartrate/Apap 5/325 Tablet PO (20:04)
== END 2019-11-08 21:34 | disposition home or self-care (01) ==
PROVIDERS: Emergency Provider Student in an Organized Health Care Education/Training Program; PCP Internal Medicine
DX: S61.211A Laceration without foreign body of left index finger without damage to nail, initial encounter (principal); J45.990 Exercise induced bronchospasm; W31.2XXA Contact with powered woodworking and forming machines, initial encounter; Y92.9 Unspecified place or not applicable; Y99.9 Unspecified external cause status
CPT/HCPCS: 12001; 90715; 99284

== ENCOUNTER → 2020-02-04 17:21 | Outpatient (CLI) | payer BC, SELFPAY ==
--- NOTE | 2020-02-04 16:40 | ECC_PTH ---
PATIENT: LEXII ACOSTA [facility] U[facility][id number] AGE/SX: 49/F ROOM: RE02/04/[address]: Dr. Eliseo Huynh MD : 1975 BED: DIS: SPEC #: [id number] RECD: 02/04/20 17:21 STATUS: GASPER JULES #: [id number] MORRIS: 02/04/20 16:[address]: Eliseo Huynh DEPT: SURGICAL PATHOLOGY RECD BY: Daija Tellez ENTERED: 02/05/20 08:40 SP TYPE: ECC OT DR: Dr. Minoo Miller, DO Tissues: Endocervical Procedures: Surgery Specimen Level IV HEADER OPERATION: ECC PRE-OP DIAGNOSIS: N93.9, N92.6 TISSUE SUBMITTED: ECC MICROSCOPIC DIAGNOSIS Endocervix, curettings: Strips of benign superficial endocervix. Benign detached squamous epithelial cells. No evidence of dysplasia. AM:marce 12/14/20 MICROSCOPIC DESCRIPTION Slides are reviewed. GROSS DESCRIPTION Received in fixative is one container labeled with the patient's name and designated ECC. The specimen consists of multiple fragments of hemorrhagic tissue mixed with mucoid tissue that in aggregate measure 3 x 2.5 x 0.3 cm. The specimen is totally submitted in one cassette. / SJ:marce 02/05/20 TC:5 CPT: 68874
== END ==
LOC: LAB 02-05 07:58 → LABSPEC 02-05 07:59
PROVIDERS: PCP Internal Medicine; Referring Provider Obstetrics & Gynecology; Visit Provider Obstetrics & Gynecology
DX: N93.9 Abnormal uterine and vaginal bleeding, unspecified (principal); N92.6 Irregular menstruation, unspecified
CPT/HCPCS: 88305

== ENCOUNTER → 2020-02-04 18:01 | Outpatient (CLI) | payer BC, SELFPAY ==
[2020-02-11 18:26] LABS: HPV APTIMA, High Risk Negative (Negative); HPV Reflexed? YES, CHARGE PATIENT
== END ==
PROVIDERS: PCP Internal Medicine; Referring Provider Obstetrics & Gynecology; Visit Provider Obstetrics & Gynecology
DX: Z12.4 Encounter for screening for malignant neoplasm of cervix (principal)
CPT/HCPCS: 87624; 88175; G0145

== ENCOUNTER → 2020-05-04 13:24 | Outpatient (CLI) | payer OTHER, SELFPAY ==
--- NOTE | 2020-05-04 | EMB_PTH ---
PATIENT: LEXII ACOSTA [facility] U#:[id number] AGE/SX: 49/F ROOM: RE05/04/[address]: Dr. Eliseo Huynh MD : 1975 BED: DIS: SPEC #: [id number] RECD: 05/04/20 14:04 STATUS: GASPER JULES #: [id number] MORRIS: 05/04/20 00:[address]: Eliseo Huynh DEPT: SURGICAL PATHOLOGY RECD BY: Mat Pastor ENTERED: 05/05/20 07:55 SP TYPE: ENDOM BX/C CHYNA DR: Dr. Minoo Miller, DO Tissues: Endometrium, NOS Procedures: Surgery Specimen Level IV HEADER OPERATION: Endometrial biopsy PRE-OP DIAGNOSIS: N92.0 TISSUE SUBMITTED: Endometrial biopsy MICROSCOPIC DIAGNOSIS Endometrial biopsy: Proliferative endometrium. SJ:marce 05/06/2020 MICROSCOPIC DESCRIPTION Slides are reviewed. GROSS DESCRIPTION Received in fixative is one container labeled with the patient's name and designated EM biopsy. The specimen consists of multiple fragments of santoyo hemorrhagic soft tissue that in aggregate measure 2.5 x 1.5 x 0.2 cm. The specimen is totally submitted in one cassette. / SJ:marce 05/05/20 TC:4 CPT: 70461
== END ==
PROVIDERS: PCP Internal Medicine; Visit Provider Obstetrics & Gynecology
DX: N92.0 Excessive and frequent menstruation with regular cycle (principal)
CPT/HCPCS: 88305

== ENCOUNTER 2020-06-06 11:46 | Day surgery (SDC) | payer OTHER, SELFPAY ==
[2020-06-02 17:20] LABS: Hematocrit 35.1 % (37-47); Hemoglobin 11.8 g/dL (12.0-15.0); Mean Corp Hgb Conc 33.6 g/dL (32-36); Mean Corpuscular Hgb 31.1 pg (27.0-32.0); Mean Corpuscular Volume 92.6 fL (81-99); Mean Platelet Vol. 8.7 fl (6.2-12.0); Platelet Count 528 K/mm3 (150-450); RBC Distribution Width CV 12.8 % (11.6-14.6); RBC Distribution Width SD 43.5 fl (35.1-43.9); Red Blood Count 3.79 M/mm3 (4.2-5.4); White Blood Count 9.3 K/mm3 (4.4-11.0)
[2020-06-02 17:25] LABS: Prothrombin Time (Protime)PT. 12.9 SECONDS (11.7-14.9)
[2020-06-02 17:26] LABS: Partial Thromboplast Time 30.7 Seconds (24.1-36.2)
[2020-06-02 17:58] LABS: Thyroid Stim Hormone (TSH) 0.97 uIU/mL (0.358-3.74)
--- NOTE | 2020-06-05 13:40 | HP.PCM_ITS ---
History and Physical Date of Admission: 06/06/20 Surgical History and Physical Anacorwin Boland, a 45 year old female 1 0 0 0 1, presents for HTA, Hysteroscopy and D and C on June 06, 2020 at 10:15. -- Menorrhagia -- Heavy menses which began years ago. Ana claims it started gradually It occurs with menses. It is located in the vagina. Severity is severe and worsening; Additional comments are: prior ESSURE sterilization.; Additional comments are: recent ECC benign. MEDICATIONS HISTORY: Patient is also takin. clonazepam 1 mg tablet, Two pills by mouth once a day at ALLERGIES: Codeine, N & v, hot flashes, Codeine, Severe nausea & vomiting and No Known Allergies Infections - Chicken pox childhood and genital warts 1999 Illnesses - Depression Accidents - no injuries of consequence Hospitalizations - Childbirth and see surgery Review of Systems: GENERAL - Denies fever, or chills SKIN - Denies skin changes EYES - Denies visual changes EARS - Denies difficulty hearing NOSE - Denies nasal congestion or bleeding MOUTH - Denies sore throat or difficulty swallowing NECK - Denies pain or swelling RESPIRATORY - Denies shortness of breath or wheezing CARDIOVASCULAR - Denies palpitations or chest pain GASTROINTESTINAL - Denies nausea, vomiting, diarrhea, constipation GENITOURINARY - Denies dysuria, frequency of urination, incontinence of urine MUSCULOSKELETAL - Denies joint or muscle pain NEUROLOGICAL - Denies localized numbness or weakness PSYCHIATRIC - Denies depression or anxiety ENDOCRINE - Denies heat or cold intolerance, weight loss or gain HEMATO-IMMUNOLOGIC - Denies excesive bleeding with cuts SOCIAL HISTORY: Alcohol Use - denies drinking Smoking - used to smoke but quit Diet - moderate, balanced diet Lifestyle - moderate stress lifestyle and Exercise - regular Seat Belt Use - always Employer - [employer] 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 Maternal Grandfather: Colon Cancer. Paternal Grandmother: Lung CA- unsure of primary site and DM II. MENSTRUAL HISTORY: LMP Known?- DefiniteAmount/Duration - 7 days, Regularity - Regular, Frequency - monthly days, LMP - 04/01/21, Age Onset Menarche - 12 PAST PREGNANCIES: Total Pregnancies - 1; Full Term Pregnancies - 1; Premature - 0; Abortions, Induced - 0; Abortions, Spontaneous - 0; Ectopics - 0; Multiple Births - 0; Living Children - 1 SURGICAL HISTORY: 1. 02/25/1991 multiple knee sx s ; - ACL tear 2. 02/26/2000 lump removed from kneck ; Dr.Dan Millan - rheumatic fybrona 3. [place] Teeth Removal ; - 4. 02/07/2011 ESSURE ; Eliseo Huynh M.D. - 5. 04/26/2017 Right Knee Reconstruction ; - 6. 05/07/2019 Mannyisrael Soto on (R) Elbow ; - 7. 2014 (L) Shoulder Surgery ; Dr. Simmons - PHYSICAL EXAM BP- 116/74 Sitting, Right arm, regular cuff Weight- 167.22697 lbs Height- 66.25 inch BMI:26.81 CONSTITUTIONAL - NAD, well nourished, and well developed SKIN - No rash, lesions, or ulcers HEENT - Normocephalic, PERRLA, EOMI NECK - No nodes, no nuchal rigidity and thyroid normal size and texture LYMPH NODES - Palpation of lymph nodes in neck and groins within normal limits LUNGS - CTA x2 without wheezes, crackles or rales CARDIAC - Regular rate and rhythm without rubs, murmurs, or gallops BREAST - No dominant masses, no tenderness, no axillary adenopathy, no nipple discharge, no skin changes ABDOMEN - Without hepatosplenomegaly, distention, masses, rebound, or guarding; normal bowel sounds; no hernias EXTREMITIES - No edema or calf tenderness NEUROLOGICAL - Cranial nerves II-XII grossly intact PSYCHIATRIC - A and O to time, place, person, mood and affect External Genital Vagina - non-tender without lesions Urethra/Urethral Meatus - non-tender Bladder - non-tender Vagina - vaginal davis are pink and moist without loss of rugae and no evidence of atropy Cervix - without cervical motion tenderness and has normal size and features without evident lesions Uterus - multiparous size 6 cm & wt 75-125 g Adnexa - clear without masses or tenderness ASSESSMENT/PLAN: 1. Premenopause Menorrhagia EMBx ok. Discussed u/s without polyps or fibroids. Discussed options for treatment and pt desires to proceed with H/S, D and C and HTA. Discussed RBAs and all questions answered.
[2020-06-06] VITALS (10 sets, daily range): BP systolic 104–137; BP diastolic 69–87; PULSE 70–100; RESP 16; TEMP 36.2–37.3; O2SAT 95–98; BMI 27.3
[2020-06-06] MEDS: Lactated Ringers 1,000 ML 100 ML IV (12:18)
--- NOTE | 2020-06-06 12:55 | PCM.OPRPT ---
Report of Operation Date of Procedure: 06/06/20 Pre-Operative Diagnosis: Menorrhagia Post-Operative Diagnosis: Menorrhagia Surgery/Procedure Performed:: Diagnostic Hysteroscopy, Dilation and Curettage, Hydrothermal Ablation Description of Surgical Findings:: 8 cm endometrial cavity without polyps or fibroids. Possible anterior approx 2 cm fibroid noted with curette palpation on the mid anterior uterus. 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 Cervix protruded to within 3-4 cm of the introitus which would make robotic assisted vaginal hysterectomy preferred if hysterectomy were ever needed. Type of Anesthesia:: General - LMA Anesthesiologist: May Saldana Specimen's removed: Endometrial curettings Estimated Blood Loss (mL): Minimal Fluids Replaced: Crystalloid Description of Procedure: Surgeon: Eliseo Huynh MD, FACOG Indication: This is a 45 year old patient who has been having problems with extremely heavy menses. Conservative measures have not been helpful. Endometrial sampling was benign and pelvic ultrasound showed that ablation may be helpful. Pt has been counseled regarding the risks, benefits and alternatives of this procedure and all questions answered. She understands that only about half of patients will have amenorrhea after this procedure. Procedure: Patient taken to the operating room where after induction of general anesthesia the patient was prepped and draped in the usual sterile fashion. Bladder was drained of urine with a catheter. Anterior cervix grasped and cervix was dilated to about 17 Romansh size. Hysteroscopic hydrothermal ablation (HTA) unit was place in the cervix and the above findings were noted. HTA unit was removed and the uterus was gently curetted removing all contents. An HTA ablation cycle was then carried out at about 90 degrees Centigrade for 10 minutes with virtually no fluid loss during the procedure. After an appropriate cool down the HTA unit was removed with minimal bleeding noted. The patient tolerated the procedure well and was taken to the recovery room in satisfactory condition. Sponge, instruments and needle counts were all correct. There were no apparent complications of the surgery. Cefotan 2 gms IV was given prior to the procedure. Estimated Blood Loss: Minimal Specimen to Pathology: Endometrial Curettings Grafts/Implants Used: None - Complications None - Admit VTE Documentation VTE Present on Admission: Yes VTE Mechan Device Prophylaxis: SCD's
--- NOTE | 2020-06-06 12:57 | DCINST_ITS ---
Discharge Diet: No Restrictions Discharge Activity: Return to Normal Activity, May Shower, May Take a Tub Bath Call your doctor if you observe: Fever of 101 or Higher, Inability to urinate, Inability to have a bowel movement, Using more than one pad per hour Additional Instructions: Nothing in the vagina for 3-4 weeks please. Use Ibuprophen 800 mg orally every 8 hours as needed for pain. Can also add Tylenol 1000 mg every 8 hours if needed for pain. If Ibuprophen and Tylenol are not effective then use the Oxycodone but keep in mind it can cause serious constipation issues. Drink lots of water. Call if bleeding more than a pad per hour. Use stool softener as constipation can be an issue after this type of surgery. Steps and walking are OK. Activity is encouraged but do not over do it in the next few days!! Allergies/Adverse Reactions: Allergies No Known Allergies Allergy (Verified 06/06/20 12:12) Medications to take at Discharge Albuterol Sulfate [Proair Hfa] 2 puff INHALATION PRN PRN 03/23/13 Clonazepam 2 mg PO QHS 12/28/18 Cholecalciferol (Vitamin D3) [Vitamin D3] 1 cap PO DAILY 05/30/20 Fluticasone 44 Mcg [Flovent (SP)] 2 puff INHALATION BID 05/30/20 Glucosamine/D3/[place] [Osteo Bi-Flex Tablet] 2 each PO DAILY 05/30/20 Fluconazole [Diflucan] 150 mg PO CONT #2 tablet 06/06/20 Oxycodone [Oxyir] 5 mg PO Q6H PRN PRN 7 Days #5 tablet 06/06/20 The following prescriptions were given: Fluconazole [Diflucan] 150 mg PO CONT #2 tablet Transmission Status: Pending to [facility] Oxycodone [Oxyir] 5 mg PO Q6H PRN PRN 7 Days #5 tablet PRN Reason: Pain Score 6-10 Transmission Status: Sent to [facility] Primary Care Physician: Minoo Miller DO [Primary Care Provider] - Test Results: Test results from this visit will be discussed in further detail at your follow- up appointment, if applicable. Please Follow Up With: Eliseo Huynh MD When: 3 to 4 weeks
[2020-06-06] MEDS: Cefotetan 2 GM in 0.9% NS 100 ML IV (13:05)
--- NOTE | 2020-06-06 14:10 | EMB_PTH ---
PATIENT: LEXII ACOSTA [place] [facility] [id number] AGE/SX: 45/F ROOM: RE06/06/[address]: Dr. Eliseo Huynh MD : 1975 BED: DIS: 06/06/2020 SPEC #: [id number] RECD: 06/06/20 14:25 STATUS: GASPER REVernell #: [id number] MORRIS: 06/06/20 14:[address]: Eliseo Huynh DEPT: SURGICAL PATHOLOGY RECD BY: Daija Tellez ENTERED: 06/07/20 08:03 SP TYPE: ENDOM BX/C CHYNA DR: Dr. Minoo Miller, DO Tissues: Endometrium, NOS Procedures: Surgery Specimen Level IV HEADER OPERATION: Hysteroscopy, D & C hydroablation PRE-OP DIAGNOSIS: Menorrhagia TISSUE SUBMITTED: Endometrial curettings MICROSCOPIC DIAGNOSIS Endometrium, curettings: Proliferative endometrium with minimal disorder. AM:marce 06/08/2020 MICROSCOPIC DESCRIPTION Slides are reviewed. GROSS DESCRIPTION Received in fixative is one container labeled with the patient's name and designated endometrial curettings. The specimen consists of multiple irregular fragments of dark santoyo soft tissue that in aggregate measure 5 x 3 x 0.2 cm. The specimen is totally submitted in two cassettes. / AM:marce 06/07/20 TC:5 CPT: 32497
[2020-06-06] MEDS: Acetaminophen 500 MG Tablet 1000 MG PO (16:00)
[2020-06-06] MEDS: oxyCODONE 5 MG Tablet PO (16:00)
--- NOTE | 2020-06-06 16:57 | SUR.PHASEII ---
assumed care of this pt for phase 2 at this time 1046.
== END 2020-06-06 17:21 | disposition home or self-care (01) ==
LOC: SDC 11:47 → AC 11:47
PROVIDERS: PCP Internal Medicine; Referring Provider Obstetrics & Gynecology; Visit Provider Obstetrics & Gynecology
PROC: 0U5B8ZZ Destruction of Endometrium, Via Natural or Artificial Opening Endoscopic (ICD-10-PCS; CPT 58563; principal; 2020-06-06 13:55)
DX: N92.0 Excessive and frequent menstruation with regular cycle (principal); Q51.3 Bicornate uterus; Z80.1 Family history of malignant neoplasm of trachea, bronchus and lung; Z87.891 Personal history of nicotine dependence; Z88.5 Allergy status to narcotic agent
CPT/HCPCS: 58563; 36415; 84443; 85027; 85610; 85730; 86850; 86900; 86901; 87426; 88305; C9803; J7120; J2405

== ENCOUNTER → 2020-09-07 15:43 | Outpatient (CLI) | payer OTHER, SELFPAY ==
[2020-06-06 12:13] VITALS: BMI 27.3
--- NOTE | 2020-09-07 15:45 | BI_ITS ---
MAMMOGRAPHY - BILATERAL SCREENING REASON FOR EXAM: Female, 45 years old. Routine annual screening examination. PERTINENT HISTORY: Non-contributory. TECHNIQUE: Digital bilateral breast arabella (3D mammographic acquisition) in the CC and MLO projections. 2-D mediolateral oblique (MLO) and craniocaudad (CC) views of both breasts were obtained. CAD: Full Field Digital Mammography with Computer Added Detection was performed. COMPARISON: Comparison is made with prior study dated 06/30/2015 and 02/16/2014. FINDINGS: Breast Composition: The breasts are extremely dense, which lowers the sensitivity of mammography. There are no dominant masses or suspicious calcifications. No other significant abnormalities are identified. There has been no significant change since the prior study. BI/SCRN MAMM (CAD)W/ARABELLA BILAT IMPRESSION: Stable bilateral screening mammogram. Yearly follow-up mammogram recommended. (A) ASSESSMENT CATEGORY: Approximately 10% of breast cancers are not detected by mammography. A normal mammogram should not delay biopsy of a clinically suspicious abnormality. [id number] Electronically Signed: Sergio Everett MD at 8:03 EDT , Service support ,
== END ==
PROVIDERS: PCP Internal Medicine; Visit Provider Internal Medicine
DX: Z12.31 Encounter for screening mammogram for malignant neoplasm of breast (principal)
CPT/HCPCS: 77063; 77067

== ENCOUNTER → 2020-09-08 16:25 | Outpatient (CLI) | payer OTHER, SELFPAY ==
[2020-06-06 12:13] VITALS: BMI 27.3
--- NOTE | 2020-09-08 16:27 | US_ITS ---
STUDY: THYROID ULTRASOUND REASON FOR EXAM: Female, 45 years old. THYROID NODULE TECHNIQUE: Ultrasound evaluation of the thyroid was performed with real-time and static zaldivar-scale imaging. COMPARISON: . FINDINGS: RIGHT LOBE: The right lobe of the thyroid gland measures 4.8 x 1.6 x 1.1 cm. There is a homogeneous echotexture. Within the right thyroid lobe there are multiple nodules, largest seen in the lower pole with cystic and solid changes measuring 1.2 x 0.9 x 0.7 cm. There is internal and peripheral color flow. The margins are regular. The margins are hypoechoic. A similar/structure is seen just cephalad with predominantly solid and peripheral cystic component and partial hypoechoic. This measures 0.7 x 0.6 x 0.4 cm. LEFT LOBE: The left lobe of the thyroid gland measures 4.8 x 1.7 x 1.3 cm. There is a homogeneous echotexture. Within the left thyroid lobe there are multiple hypoechoic nodules with partial hypoechoic margins and internal/peripheral vascularity. The margins are regular. The largest nodule on the left are seen in the lower pole and measuring 1.2 x 0.9 x 0.5 cm. A second nodule seen adjacent measuring 0.9 x 0.5 cm and 0.8 x 0.6 cm. ISTHMUS: The isthmus measures 0.5 cm. The regional lymph nodes are normal. US/Thyroid IMPRESSION: Multiple bilateral thyroid nodules as described, with morphology favoring benign process. Some of the nodules are new in the interval (particularly on the right) and some are stable (particularly on the left) Note to be made that benign versus malignant process cannot be adequately determined without microscopic evaluation or follow-up ultrasound in 6-12 months recommended. Documentation of stability. If indicated, Electronically Signed: Hannah Robbins MD at 3:59 EDT , Service support ,
== END ==
PROVIDERS: PCP Internal Medicine; Referring Provider Internal Medicine; Visit Provider Internal Medicine
DX: E04.1 Nontoxic single thyroid nodule (principal)
CPT/HCPCS: 76536

== ENCOUNTER → 2020-09-13 15:57 | Outpatient (CLI) | payer OTHER, SELFPAY ==
[2020-06-06 12:13] VITALS: BMI 27.3
--- NOTE | 2020-09-13 15:59 | CT_ITS ---
STUDY: CT ABDOMEN AND PELVIS WITH CONTRAST REASON FOR EXAM: Female, 45 years old. Intermittent left-sided abdominal pain. History of prior uterine endometrial ablation. RADIATION DOSAGE (If Supplied By Facility): CTDIvol = ( 14.98 ) mGy, DLP = ( 701.44 ) mGycm TECHNIQUE: Transaxial images were obtained from the dome of the diaphragm to the symphysis pubis without oral contrast. Oral and amp; IV Readi-CAT and amp; 100mL Isovue-300 was administered. Sagittal and coronal images were reconstructed. Individualized dose optimization techniques were used for this CT. COMPARISON: Comparison is made with prior study dated 02/13/2016. FINDINGS: Stable 6.2 cm x 1.9 cm bullous formation in the posterior medial aspect of the left lower lobe. The visualized portions of the heart are within normal limits. Normal liver. Normal gallbladder and extrahepatic biliary system. Normal spleen. Normal pancreas. Normal bilateral adrenal glands. Normal right kidney. Normal left kidney. Normal visualized stomach. Normal small intestine. Moderate amount of fecal material is seen in the colon. The appendix is visualized and appears normal. Normal abdominal aorta. Normal inferior vena cava. Normal retroperitoneum. Normal urinary bladder. Heterogeneous appearance of the uterus in keeping with a fibroid uterus.ESSURE devices are seen in both fallopian tubes. There is a small umbilical hernia containing fat. Normal osseous structures. CT/Abdomen/Pelvis WITH Contrast IMPRESSION: Heterogeneous appearance of the uterus in keeping with fibroid uterus. Moderate amount of fecal material is seen in the colon. Stable 6.2 cm x 1.9 cm bullous formation in the posterior medial aspect of the left lower lobe. Electronically Signed: Sergio Everett MD at 9:33 EDT , Service support ,
--- NOTE | 2020-09-13 15:59 | CT_ITS ---
STUDY: CT CHEST WITHOUT CONTRAST REASON FOR EXAM: Female, 45 years old. SOLITARY PULMONARY NODULE RADIATION DOSAGE (If Supplied By Facility): CTDIvol = ( 7.65 ) mGy, DLP = ( 259.92 ) mGycm TECHNIQUE: Transaxial imaging was performed without the administration of intravenous contrast material. Multiplanar coronal and sagittal images were reformatted. Individualized dose optimization techniques were used for this CT. COMPARISON: Comparison is made with prior study dated 02/13/2016. FINDINGS: Stable calcified 5 mm granuloma in the lateral aspect of the right lower lobe. Stable 6.2 cm x 2.2 cm bulla along the superior medial aspect of the left lower lung. There is no demonstrated pleural abnormality. Normal heart and pericardium. There are multiple small lymph nodes within the mediastinum, which are normal in size and morphology most compatible with reactive lymph hyperplasia. Calcified right hilar lymph nodes. Normal unenhanced pulmonary arteries. Normal aorta arch and descending thoracic aorta. Normal osseous structures. There is no demonstrated abnormality of the visualized upper abdomen. CT/Chest without Contrast IMPRESSION: Stable examination. Electronically Signed: Sergio Everett MD at 9:29 EDT , Service support ,
== END ==
PROVIDERS: PCP Internal Medicine; Referring Provider Internal Medicine; Visit Provider Internal Medicine
DX: R91.1 Solitary pulmonary nodule (principal); R10.9 Unspecified abdominal pain
CPT/HCPCS: 71250; 74177; Q9967

== ENCOUNTER → 2020-12-02 13:46 | Outpatient (CLI) | payer OTHER, SELFPAY ==
--- NOTE | 2020-12-02 13:52 | CT_ITS ---
STUDY: CT BRAIN WITHOUT CONTRAST REASON FOR EXAM: Female, 45 years old. CONCUSSION RADIATION DOSAGE (If Supplied By Facility): CTDIvol = ( 44.99 ) mGy, DLP = ( 846.73 ) mGycm TECHNIQUE: Transaxial CT imaging of the brain was performed without administration of intravenous contrast material. Individualized dose optimization techniques were used for this CT. COMPARISON: No relevant priors. FINDINGS: Normal soft tissue structures. Normal calvarium. Normal size ventricles and extra-axial spaces for the patient''s age. Normal white matter tracts of the cerebral hemispheres. Normal basal ganglia and thalami. Normal brainstem. Normal cerebellum. There is no intracranial hemorrhage. There are no findings of an acute ischemic infarction. Normal visualized paranasal sinuses. CT/Brain/Head without Contrast IMPRESSION: Normal unenhanced CT scan of the brain. Electronically Signed: Jose Martin Ledesma MD ([facility]) at 14:15 EDT , Service support ,
== END ==
PROVIDERS: PCP Internal Medicine; Visit Provider Internal Medicine
DX: S09.90XA Unspecified injury of head, initial encounter (principal)
CPT/HCPCS: 70450

== ENCOUNTER → 2021-07-27 | Outpatient (CLI) | payer BC, SELFPAY ==
[2021-07-27 06:32] LABS: Bacteria 0 SEEN /hpf (None Seen); Mucous, Urine 0 SEEN /hpf (<or=2+); Red Blood Cells-Urine 0 SEEN /hpf (0-5); White Blood Cells 0 SEEN /hpf (0-5)
[2021-07-27 07:32] LABS: Color, Urine Yellow (Yellow); Glucose, Dipstick Normal (Normal); Ketone-Dipstick Negative (Negative); Leukocyte Esterase-Dipstick Negative /ul (Negative); Nitrite-Dipstick Negative (Negative); Occult Blood-Urine 25 /ul (Negative); Protein-Dipstick Negative (Negative); Specific Gravity, Urine 1.015 (1.002-1.030); Urine Bilirubin Dipstick Negative (Negative); Urine Clarity Clear (Clear); Urine Urobilinogen Normal (Normal)
[2021-07-27 07:33] LABS: Absolute Lymphocyte Count 1.85 X10^3/uL (0.83-4.51); Absolute Neutrophil Count 3.1 X10^3/uL (2.0-7.7); Basophil# 0.06 X10^3/uL; Eosinophil# 0.45 X10^3/uL; Eosinophils% 7.6 % (0-5); Lymphocyte # 1.85 X10^3/ul (0.83-4.51); Lymphocyte % 31.1 % (19-41); Mean Corp Hgb Conc 33.3 g/dL (32-36); Mean Corpuscular Hgb 32.2 pg (27.0-32.0); Mean Corpuscular Volume 96.5 fL (81-99); Mean Platelet Vol. 9.2 fl (6.2-12.0); Monocyte% 8.4 % (0-10); NRBC Flagged by Analyzer 0 % (0-5); Neutrophil # 3.07 X10^3/uL (2.7-7.7); Neutrophil % 51.6 % (47-70); Platelet Count 418 K/mm3 (150-450); RBC Distribution Width CV 11.8 % (11.6-14.6); Red Blood Count 4.04 M/mm3 (4.2-5.4)
[2021-07-27 07:50] LABS: ALB/GLOB Ratio 1.1 RATIO (0.9-2.4); AST(SGOT) 13 U/L (15-37); Alanine Aminotransfer ALT/SGPT 27 U/L (13-56); Albumin, Serum 3.8 g/dL (3.2-5.0); Alkaline Phosphatase 46 U/L (45-117); Anion Gap 5 (5-15); BUN 16 mg/dL (7-18); BUN/Creat Ratio 25.1 RATIO (10-20); Calcium,Total 9.2 mg/dL (8.5-10.1); Chloride 109 mmol/L (98-107); Cholesterol 150 mg/dL (200); Creatinine, Serum 0.64 mg/dL (0.55-1.02); EST Glomerular Filtration Rate 106 mL/min (>60); Est Glom Filt Rate - Afr Amer 128 mL/min (>60); Globulin 3.5 g/dL (2.2-4.2); Glucose 80 mg/dL (74-106); High Density Lipoprotein 62 mg/dL; Potassium 3.7 mmol/L (3.5-5.1); Protein, Total 7.3 g/dL (6.4-8.2); Sodium Level 140 mmol/L (136-145); Triglycerides 53 mg/dL; Very Low Density Lipoprotein 11 mg/dL (5-40)
[2021-07-27 07:55] LABS: Squamous Epithelial Cells - UA 0-5 SEEN /hpf (5-10)
[2021-07-27 08:25] LABS: Vitamin D,25 Hydroxy 93.6 ng/mL
[2021-07-27 08:50] LABS: Microalbumin,Random Urine < 5.0 mg/L (NO RANGE EST.)
== END | disposition home or self-care (01) ==
LOC: LAB 06:27
PROVIDERS: PCP Internal Medicine; Referring Provider Internal Medicine; Visit Provider Internal Medicine
DX: E67.3 Hypervitaminosis D (principal); I10 Essential (primary) hypertension; R74.8 Abnormal levels of other serum enzymes
CPT/HCPCS: 36415; 80053; 80061; 81001; 82043; 82157; 82306; 82570; 85025

== ENCOUNTER → 2021-10-16 | Outpatient (CLI) | payer BC, SELFPAY ==
--- NOTE | 2021-10-16 15:57 | US_ITS ---
STUDY: THYROID ULTRASOUND REASON FOR EXAM: Female, 46 years old. Known nodules TECHNIQUE: Ultrasound evaluation of the thyroid was performed with real-time and static zaldivar-scale imaging. COMPARISON: Multiple previous studies dating back to 2014 FINDINGS: RIGHT LOBE: The right lobe of the thyroid gland measures 4.8 x 1.6 x 1.0 cm. There is a homogeneous echotexture. 2 separate stable solid nodules, larger measures 0.7 cm, smaller 0.6 cm. LEFT LOBE: The left lobe of the thyroid gland measures 4.4 x 1.6 x 1.4 cm. There is a homogeneous echotexture. 3 separate stable solid nodules, largest measures 1.1 x 0.8 x 0.6 cm. ISTHMUS: The isthmus measures 3 mm. The regional lymph nodes are normal. US/Thyroid IMPRESSION: Borderline enlarged thyroid with stable bilateral solid nodules. Findings again consistent with goiter, no significant change since the previous study. Continued yearly follow-up Electronically Signed: Josse Anderson MD at 9:21 EDT ,
== END | disposition home or self-care (01) ==
LOC: US 15:55
PROVIDERS: PCP Internal Medicine; Referring Provider Internal Medicine; Visit Provider Internal Medicine
DX: E04.1 Nontoxic single thyroid nodule (principal)
CPT/HCPCS: 76536

== ENCOUNTER → 2021-11-16 | Outpatient (CLI) | payer BC, SELFPAY ==
--- NOTE | 2021-11-16 14:34 | BI_ITS ---
MAMMOGRAPHY - UNILATERAL DIAGNOSTIC: RIGHT BREAST REASON FOR EXAM: Female, 46 years old. MASS PERTINENT HISTORY: Non-contributory. TECHNIQUE: Digital examination. Mediolateral oblique (MLO) and craniocaudad (CC) views of the breast were obtained. CAD: CAD was performed on this study. COMPARISON: 03/16/2021 FINDINGS: Breast Composition: The breasts are extremely dense, which lowers the sensitivity of mammography. There are no dominant masses or suspicious calcifications. No other significant abnormalities are identified. BI/DIAG MAMM W/CAD, UNILAT IMPRESSION: Stable unilateral diagnostic mammogram. Ultrasound of the palpable abnormality in the upper outer quadrant of the right breast will be obtained. ASSESSMENT CATEGORY: BIRADS Category 0: Incomplete. Need additional imaging evaluation. A letter regarding these results will be sent to the patient by the facility within 30 days. FOLLOW-UP RECOMMENDATION: Ultrasound recommended. (I) Approximately 10% of breast cancers are not detected by mammography. A normal mammogram should not delay biopsy of a clinically suspicious abnormality. Electronically Signed: Danny Shaffer MD at 15:15 EDT ,
--- NOTE | 2021-11-16 14:34 | US_ITS ---
STUDY: ULTRASOUND BREAST - RIGHT REASON FOR EXAM: Female, 46 years old. Palpable mass TECHNIQUE: Axial and longitudinal images of the RIGHT breast were performed with a high resolution ultrasound transducer. # OF IMAGES: 39 COMPARISON: Diagnostic mammogram earlier today FINDINGS: RIGHT Breast: Heterogeneous background echotexture. Multiple longitudinal and transverse ultrasound images of the upper outer quadrant right breast confirm dense breast parenchyma with multiple small cysts measuring 8 mm, 8 mm, and 9 mm consistent with fibrocystic change.: US/Breast Limited Unilateral IMPRESSION: Ultrasound confirms fibrocystic change corresponding to the patient''s palpable abnormality. ASSESSMENT CATEGORY: BIRADS Category 2: Benign. A letter regarding these results will be sent to the patient by the facility within 30 days. Electronically Signed: Danny Shaffer MD at 15:59 EDT ,
== END | disposition home or self-care (01) ==
PROVIDERS: PCP Internal Medicine; Referring Provider Internal Medicine; Visit Provider Internal Medicine
DX: N63.11 Unspecified lump in the right breast, upper outer quadrant (principal)
CPT/HCPCS: 76642; 77061; 77065; G0279

== ENCOUNTER → 2022-04-18 | Outpatient (CLI) | payer BC, SELFPAY ==
[2022-04-18 08:13] LABS: Absolute Lymphocyte Count 1.91 X10^3/uL (0.83-4.51); Absolute Neutrophil Count 3.7 X10^3/uL (2.0-7.7); Basophil# 0.09 X10^3/uL; Basophil% 1.3 % (0-1); Eosinophil# 0.52 X10^3/uL; Eosinophils% 7.7 % (0-5); Hematocrit 39.8 % (37-47); Hemoglobin 13.2 g/dL (12.0-15.0); Lymphocyte # 1.91 X10^3/ul (0.83-4.51); Lymphocyte % 28.2 % (19-41); Mean Corp Hgb Conc 33.2 g/dL (32-36); Mean Corpuscular Volume 99.5 fL (81-99); Mean Platelet Vol. 9.3 fl (6.2-12.0); Monocyte# 0.54 X10^3/uL; NRBC Flagged by Analyzer 0 % (0-5); Neutrophil # 3.71 X10^3/uL (2.7-7.7); Neutrophil % 54.7 % (47-70); Platelet Count 455 K/mm3 (150-450); RBC Distribution Width CV 12.3 % (11.6-14.6); RBC Distribution Width SD 45.1 fl (35.1-43.9); White Blood Count 6.8 K/mm3 (4.4-11.0)
[2022-04-18 08:48] LABS: ALB/GLOB Ratio 1.1 RATIO (0.9-2.4); AST(SGOT) 17 U/L (15-37); Alanine Aminotransfer ALT/SGPT 21 U/L (13-56); Albumin, Serum 3.6 g/dL (3.2-5.0); Alkaline Phosphatase 36 U/L (45-117); Anion Gap 3 (5-15); BUN 12 mg/dL (7-18); BUN/Creat Ratio 19.6 RATIO (10-20); Calcium,Total 9.4 mg/dL (8.5-10.1); Chloride 110 mmol/L (98-107); Creatinine, Serum 0.61 mg/dL (0.55-1.02); EST Glomerular Filtration Rate 111 mL/min (>60); Est Glom Filt Rate - Afr Amer 134 mL/min (>60); Globulin 3.2 g/dL (2.2-4.2); Glucose 81 mg/dL (74-106); Protein, Total 6.8 g/dL (6.4-8.2); Sodium Level 142 mmol/L (136-145)
== END | disposition home or self-care (01) ==
LOC: LAB 06:14
PROVIDERS: PCP Internal Medicine; Referring Provider Internal Medicine; Visit Provider Internal Medicine
DX: D75.839 Thrombocytosis, unspecified (principal)
CPT/HCPCS: 36415; 80053; 85025

== ENCOUNTER → 2022-09-24 | Outpatient (CLI) | payer BC, SELFPAY ==
[2022-09-24 16:48] LABS: Bacteria 0 SEEN /hpf (None Seen); Mucous, Urine 0 SEEN /hpf (<or=2+); Red Blood Cells-Urine 0 SEEN /hpf (0-5); White Blood Cells 0 SEEN /hpf (0-5)
[2022-09-24 17:48] LABS: Absolute Lymphocyte Count 2.13 X10^3/uL (0.83-4.51); Absolute Neutrophil Count 7.2 X10^3/uL (2.0-7.7); Basophil# 0.07 X10^3/uL; Basophil% 0.7 % (0-1); Eosinophil# 0.24 X10^3/uL; Eosinophils% 2.3 % (0-5); Hematocrit 35.3 % (37-47); Hemoglobin 11.9 g/dL (12.0-15.0); Lymphocyte # 2.13 X10^3/ul (0.83-4.51); Lymphocyte % 20.8 % (19-41); Mean Corp Hgb Conc 33.7 g/dL (32-36); Mean Corpuscular Hgb 32.2 pg (27.0-32.0); Mean Corpuscular Volume 95.7 fL (81-99); Mean Platelet Vol. 9.4 fl (6.2-12.0); Monocyte# 0.61 X10^3/uL; NRBC Flagged by Analyzer 0 % (0-5); Neutrophil # 7.17 X10^3/uL (2.7-7.7); Neutrophil % 69.9 % (47-70); Platelet Count 395 K/mm3 (150-450); RBC Distribution Width CV 12.2 % (11.6-14.6); RBC Distribution Width SD 43.1 fl (35.1-43.9); Red Blood Count 3.69 M/mm3 (4.2-5.4); White Blood Count 10.3 K/mm3 (4.4-11.0)
[2022-09-24 18:07] LABS: Color, Urine Yellow (Yellow); Glucose, Dipstick Normal (Normal); Ketone-Dipstick 50 mg/dl (Negative); Leukocyte Esterase-Dipstick Negative /ul (Negative); Nitrite-Dipstick Negative (Negative); Occult Blood-Urine 25 /ul (Negative); Protein-Dipstick Negative (Negative); Specific Gravity, Urine 1.015 (1.002-1.030); Urine Bilirubin Dipstick Negative (Negative); Urine Clarity Clear (Clear); Urine Urobilinogen Normal (Normal)
[2022-09-24 18:18] LABS: Squamous Epithelial Cells - UA 0-5 SEEN /hpf (5-10)
[2022-09-24 18:26] LABS: Vitamin B12 1363 pg/mL (211-911); Vitamin D,25 Hydroxy 54.6 ng/mL
[2022-09-24 18:31] LABS: Erythrocyte Sedimentation Rate 6 mm/hr (0-30)
[2022-09-24 18:36] LABS: AST(SGOT) 21 U/L (15-37); Alanine Aminotransfer ALT/SGPT 24 U/L (13-56); Albumin, Serum 3.4 g/dL (3.2-5.0); Alkaline Phosphatase 38 U/L (45-117); Amylase 23 U/L (25-115); Anion Gap 5 (5-15); BUN 16 mg/dL (7-18); BUN/Creat Ratio 26.5 RATIO (10-20); Calcium,Total 9.2 mg/dL (8.5-10.1); Chloride 108 mmol/L (98-107); EST Glomerular Filtration Rate 113 mL/min (>60); Est Glom Filt Rate - Afr Amer 136 mL/min (>60); Globulin 3.5 g/dL (2.2-4.2); Glucose 85 mg/dL (74-106); Lipase 31 U/L (13-75); Potassium 3.5 mmol/L (3.5-5.1); Protein, Total 6.9 g/dL (6.4-8.2); Sodium Level 139 mmol/L (136-145); Thyroid Stim Hormone (TSH) 1.97 uIU/mL (0.358-3.74)
== END | disposition home or self-care (01) ==
PROVIDERS: PCP Internal Medicine; Referring Provider Internal Medicine; Visit Provider Internal Medicine
DX: R19.4 Change in bowel habit (principal); I10 Essential (primary) hypertension; E05.90 Thyrotoxicosis, unspecified without thyrotoxic crisis or storm; R20.2 Paresthesia of skin; F34.1 Dysthymic disorder
CPT/HCPCS: 36415; 80053; 81001; 82150; 82306; 82607; 82746; 83690; 84443; 85025; 85652

== ENCOUNTER → 2022-10-01 | Outpatient (CLI) | payer BC, SELFPAY ==
--- NOTE | 2022-10-01 16:05 | US_ITS ---
STUDY: THYROID ULTRASOUND REASON FOR EXAM: Female, 47 years old. thyroid nodule TECHNIQUE: Ultrasound evaluation of the thyroid was performed with real-time and static zaldivar-scale imaging. COMPARISON: 10/16/2021 FINDINGS: RIGHT LOBE: The right lobe of the thyroid gland measures 5.0 x 1.6 x 1.2 cm. There is a heterogeneous echotexture. Nodule 1: No change in the 7 x 4 x 5 mm solid hypoechoic wider than tall smoothly marginated nodule and no echogenic foci (TR 4) in the mid right lobe consistent with an adenoma. Nodule 2: No change in the 14 x 6 x 11 mm solid hypoechoic wider than tall smoothly marginated nodule with no echogenic foci (TR 4) in the medial right lobe and follow-up ultrasound is recommended one year. LEFT LOBE: The left lobe of the thyroid gland measures 4.8 x 1.6 x 1.1 cm. There is a heterogeneous echotexture. Nodule 3: No change in the 10 x 6 x 7 mm solid hypoechoic wider than tall smoothly marginated nodule and no echogenic foci (TR 4) in the mid left lobe consistent with an adenoma. Nodule 4: No change in the 12 x 6 x 10 mm adjacent solid hypoechoic wider than tall smoothly marginated nodule with no echogenic foci (TR 4) in the lateral left lobe and follow-up ultrasound is recommended in one year. Multiple other small (less than 5 mm) (hypoechoic nodules consistent with adenomas. ISTHMUS: The isthmus measures 4 mm thick. . The regional lymph nodes are normal. US/Thyroid IMPRESSION: Thyroiditis with multiple adenomas and follow-up ultrasound is recommended in 1 year. Electronically Signed: Danny Shaffer MD at 15:20 EDT ,
== END | disposition home or self-care (01) ==
LOC: US 16:04
PROVIDERS: PCP Internal Medicine; Referring Provider Internal Medicine; Visit Provider Internal Medicine
DX: E04.1 Nontoxic single thyroid nodule (principal)
CPT/HCPCS: 76536

== ENCOUNTER → 2022-11-20 | Outpatient (CLI) | payer BC, SELFPAY ==
--- NOTE | 2022-11-20 15:57 | BI_ITS ---
MAMMOGRAPHY - BILATERAL SCREENING REASON FOR EXAM: Female, 47 years old. Routine annual screening examination. PERTINENT HISTORY: Non-contributory. TECHNIQUE: Digital bilateral breast arabella (3D mammographic acquisition) in the CC and MLO projections. 2-D mediolateral oblique (MLO) and craniocaudad (CC) views of both breasts were obtained. CAD: Full Field Digital Mammography with Computer Added Detection was performed. COMPARISON: Comparison is made with prior study dated November 16, 2021 and March 16, 2021. FINDINGS: Breast Composition: The breasts are extremely dense, which lowers the sensitivity of mammography. There are no dominant masses or suspicious calcifications. No other significant abnormalities are identified. There has been no significant change since the prior study. BI/SCRN MAMM (CAD)W/ARABELLA BILAT IMPRESSION: Stable bilateral screening mammogram. Yearly follow-up mammogram recommended. (A) ASSESSMENT CATEGORY: BIRADS Category 1: Negative. A letter regarding these results will be sent to the patient by the facility within 30 days. Approximately 10% of breast cancers are not detected by mammography. A normal mammogram should not delay biopsy of a clinically suspicious abnormality. [id number] Electronically Signed: Sergio Everett MD at 8:05 EDT ,
== END | disposition home or self-care (01) ==
LOC: OPBI 15:56
PROVIDERS: PCP Internal Medicine; Referring Provider Internal Medicine; Visit Provider Internal Medicine
DX: Z12.31 Encounter for screening mammogram for malignant neoplasm of breast (principal)
CPT/HCPCS: 77063; 77067

== ENCOUNTER → 2023-01-12 | Outpatient (CLI) | payer BC, SELFPAY ==
--- NOTE | 2023-01-12 10:43 | US_ITS ---
STUDY: ABDOMINAL ULTRASOUND - RIGHT UPPER QUADRANT REASON FOR VISIT: Female, 47 years old barrett colored stools, epigastric pain TECHNIQUE: Ultrasound evaluation of the right upper quadrant was performed with real-time and static zaldivar-scale imaging. TECHNICAL QUALITY: Adequate. COMPARISON: None. FINDINGS: Liver: The liver measures 15.3 cm. There is normal echogenicity of the liver. The bile ducts are within normal limits. There is hepatic color flow. The direction of portal flow is hepatopetal. There is no demonstrated mass lesion. Gallbladder: Normal distended gallbladder. The gallbladder wall measures 2 mm. There is a negative sonographic Hollingsworth''s sign. There is no pericholecystic fluid. There are no gallstones. Common Bile Duct (C.B.D.): The common bile duct measures 4 mm. Pancreas: Normal size of the head, body and tail of the pancreas. There is normal echogenicity of the pancreas. There is no demonstrated pancreatic mass or cyst. Right Kidney: Normal size of the right kidney. The right kidney measures 10.4 cm. Normal renal cortex. The right cortex measures 1.2 cm. There is no demonstrated renal mass or cyst. There is no right hydronephrosis. US/Abdomen Limited IMPRESSION: Normal right upper quadrant ultrasound examination. Electronically Signed: Danny Shaffer MD at 21:06 EST ,
== END | disposition home or self-care (01) ==
LOC: US 10:28
PROVIDERS: PCP Internal Medicine; Visit Provider Internal Medicine
DX: R19.5 Other fecal abnormalities (principal)
CPT/HCPCS: 76705

== ENCOUNTER → 2023-02-08 | Outpatient (CLI) | payer BC, SELFPAY ==
--- NOTE | 2023-02-08 16:16 | CT_ITS ---
STUDY: CT Abdomen And Pelvis W/ Contrast Injection 02/10/2023 4:24 PM REASON FOR EXAM: Female, 47 years old. ABDOMINAL PAIN WEIGHT LOSS AND BARRETT COLORED STOOL -- barrett colored stool TECHNIQUE: Transaxial images were obtained with oral contrast, and with Oral and amp; IV Readi-CAT and amp; 100mL Isovue-300 intravenous contrast. Individualized dose optimization techniques were used for this CT. COMPARISON: 09.13.20 FINDINGS: Right lower lobe calcified granuloma. Adjacent 2.2 mm nodule. This is stable. The visualized portions of the heart are within normal limits. Unremarkable liver. Unremarkable gallbladder and extrahepatic biliary system. Unremarkable spleen. Unremarkable pancreas. Unremarkable bilateral adrenal glands. No acute findings of the right kidney. No acute findings of the left kidney. Unremarkable visualized stomach. Unremarkable small intestine. Stool throughout the colon. The appendix is visualized and appears unremarkable. There are calcifications of the abdominal aorta. This is consistent for atherosclerotic disease. There is no abdominal aortic aneurysm. Unremarkable inferior vena cava. Subcentimeter mesenteric lymph nodes. Unremarkable urinary bladder. Fibroid uterus. Tubal ligation wires in place. There is an umbilical hernia containing fat. Unremarkable osseous structures. CT/Abdomen/Pelvis WITH Contrast IMPRESSION: (NOT LISTED IN ORDER OF SIGNIFICANCE) Constipation. Stable right lower lobe nodule. Other findings as above. Electronically Signed: Huseyin Michele MD at 16:27 EST ,
== END | disposition home or self-care (01) ==
LOC: CT 16:03
PROVIDERS: PCP Internal Medicine; Referring Provider Internal Medicine; Visit Provider Internal Medicine
DX: R19.5 Other fecal abnormalities (principal); R63.4 Abnormal weight loss
CPT/HCPCS: 74177; Q9967

== ENCOUNTER 2023-03-18 10:38 | Emergency (ER) | payer OTHER, BC, SELFPAY ==
[2023-03-18 10:38] VITALS: BP 185/100; PULSE 109; RESP 16; TEMP 36.7; O2SAT 99; BMI 21.7
--- NOTE | 2023-03-18 11:02 | EX.ED.DYSGE1 ---
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 She was able to take a few steps to sit down but now cannot bear weight due to left lateral ankle pain and swelling. There was no head injury. No weakness or paresthesias. She is not on blood thinners. PFSH <GREG Patel - Last Filed: 03/18/23 13:26> PFSH Home Medications Albuterol Sulfate [Proair Hfa] 2 puff inhalation PRN PRN Shortness Of Breath 03/23/13 [History Last Taken 12/28/18] clonazepam 1 mg tablet 2 mg PO QHS 12/28/18 [History Last Taken 1 Day Ago ~12/27/18] Cholecalciferol (Vitamin D3) [Vitamin D3] 1 cap PO DAILY supplement 05/30/20 [History Last Taken Unknown] fluticasone propionate 44 mcg/actuation HFA aerosol inhaler 2 puff inhalation BID breathing 05/30/20 [History Last Taken Unknown] glucosamine [id number]-[id number] leo 1,500 mg-400 unit-100 mg tablet 2 each PO DAILY supplement 05/30/20 [History Last Taken Unknown] fluconazole 150 mg tablet 150 mg PO CONT #2 tabs 06/06/20 [Rx Last Taken Unknown] oxycodone-acetaminophen 5 mg-325 mg tablet (Percocet) 1 tab PO Q6H PRN pain 3 days #12 tabs 03/18/23 [Rx Last Taken Unknown] Allergy/AdvReac Type Severity Reaction Status Date / Time No Known Allergies Allergy Verified 03/18/23 10:38 Social History Smoking Status: Current every day smoker tobacco type: cigarettes ROS <GREG Patel - Last Filed: 03/18/23 13:26> ROS ED ROS Narrative Neuro: Negative for motor/sensory dysfunction. Skin: Negative for wound. Musc: Positive for left elbow and ankle pain. EXAM <GREG Patel - Last Filed: 03/18/23 13:26> Physical Exam Narrative Exam Narrative: CONST: Patient sitting in no acute distress. EYES: Normal inspection. NECK: Normal inspection. RESP: No respiratory distress, CTAB. CVS: Regular rate and rhythm, no murmur, no gallop. SKIN: Color normal, no rash, warm, dry, intact. EXTREMITIES: Normal appearance of upper extremities, full ROM, no tenderness, reports left elbow pain with movement but has full range of motion, 5/5 strength, normal sensation, 2+ radial pulses. Lower extremities: Left lateral ankle has soft tissue swelling and tenderness. No tenderness of knee proximal fibula or foot. Achilles intact. Distal sensation intact, 2+ DP pulse. NEURO: Oriented x4. PSYCH: Normal affect. Const Vital Signs: 03/18/23 10:38 Temperature 98.0 F Temperature Source Temporal Pulse Rate 109 H Respiratory Rate 16 Blood Pressure 185/100 H Blood Pressure Mean 128 Pulse Ox 99 Oxygen Delivery Method Room Air <Dr. Geo Deng MD - Last Filed: 03/18/23 12:40> Physical Exam Const Vital Signs: 03/18/23 10:38 Temperature 98.0 F Temperature Source Temporal Pulse Rate 109 H Respiratory Rate 16 Blood Pressure 185/100 H Blood Pressure Mean 128 Pulse Ox 99 Oxygen Delivery Method Room Air MDM <GREG Patel - Last Filed: 03/18/23 13:26> [facility] Narrative Medical decision making narrative: 48-year-old female had a workplace fall injuring her left elbow and ankle. Upper extremities no signs of trauma but she indicates pain over the radial head area with movement. She has left lateral ankle swelling and tenderness. Neurovascularly intact. X-rays show nondisplaced left radial head fracture and nondisplaced left lateral malleolus fracture. The patient was reevaluated she complained of left hand tenderness over the fifth metacarpal area. No scaphoid or wrist tenderness. Left hand x-ray shows no acute findings. Left upper extremity is placed in a sling, left leg in a walking boot, and I prescribed Percocet as needed. She was given limited use of the left side and should follow-up with orthopedics. She was discharged in stable condition. Radiography Diagnostic Testing: Clinical Impression(s) from Imaging Studies Ankle X-Ray 03/18/23 11:10 IMPRESSION: Nondisplaced transverse fracture of the lateral malleolus with overlying soft tissue swelling. Electronically Signed: Sergio Everett MD at 12:20 EST , Elbow X-Ray 03/18/23 11:10 IMPRESSION: Nondisplaced radial head fracture and joint effusion. Electronically Signed: Sergio Everett MD at 12:20 EST Reading Location ID and State: [facility] / [place] , Service support , Hand X-Ray 03/18/23 12:33 IMPRESSION: Normal x-ray examination of the hand. Electronically Signed: Sergio Everett MD at 13:02 EST Reading Location ID and State: [facility] / [place] , Service support , ED attending interpretation of left ankle shows nondisplaced transverse fracture of distal fibula. ED attending interpretation of left elbow shows nondisplaced radial head fracture. ED attending interpretation of left hand shows no fracture or dislocation. <Dr. Geo Deng MD - Last Filed: 03/18/23 12:40> MDM Radiography Diagnostic Testing: Clinical Impression(s) from Imaging Studies Ankle X-Ray 03/18/23 11:10 IMPRESSION: Nondisplaced transverse fracture of the lateral malleolus with overlying soft tissue swelling. Electronically Signed: Sergio Everett MD at 12:20 EST , Elbow X-Ray 03/18/23 11:10 IMPRESSION: Nondisplaced radial head fracture and joint effusion. Electronically Signed: Sergio Everett MD at 12:20 EST , Hand X-Ray 03/18/23 12:33 IMPRESSION: Normal x-ray examination of the hand. Electronically Signed: Sergio Everett MD at 13:02 EST , Treatment and Re-Evaluation :: I have personally performed a face to face assessment of the patient and have reviewed the TRISHA Note. I performed a substantive portion of the visit including all aspects of the following. My smith findings include: History is twisted left ankle and fell on the left side while stepping off of tow motor at work. Difficulty walking on her left lower extremity due to the pain in her ankle laterally. [id number]. Exam is ecchymosis, swelling, tenderness left lateral malleolus. Joint stable. Nontender medially. Foot nontender. Minimal tenderness at the radial head with pain with supination and elbow extension mostly, otherwise has excellent range of motion, also mildly tender at the base of the left palm of the hand but full range of motion of the wrist without tenderness at the distal radius or snuffbox. Medical Decison Making x-rays performed. 3 views of the left elbow show what appears to be a nondisplaced radial head fracture, 3 2 views of the left ankle shows a nondisplaced distal fibula fracture with intact mortise, and three-view x-ray of the left hand on my interpretation shows no acute fracture. Patient will be placed in a walking boot, sling, orthopedic follow-up advised, will prescribe pain medication and give work restrictions. Other additions or changes: [None] Discharge Plan Triage Chief Complaint: Lower Extremity Injury ED Midlevel Provider: Manju Soto ED Provider: Geo Deng Dx/Rx/DC Orders Clinical Impression: Closed fracture of left lateral malleolus, Closed fracture of head of left radius Instructions: ED Ankle Fracture, ED Elbow Fracture Prescriptions: New oxycodone-acetaminophen [Percocet] 5-325 mg tablet 1 tab PO Q6H PRN (Reason: pain) 3 Days Qty: 12 0RF No Action Albuterol Sulfate [Proair Hfa] 8.5 GM Hfa.Aer.Ad 2 puff inhalation PRN PRN (Reason: Shortness Of Breath) clonazepam 1 MG tablet 2 mg PO QHS fluticasone propionate 1 INHALER inhaler 2 puff INHALATION BID [id number] serr 1 EACH tablet 2 each PO DAILY Cholecalciferol (Vitamin D3) [Vitamin D3] 5,000 UNIT capsule 1 cap PO DAILY fluconazole 150 MG tablet 150 mg PO CONT Qty: 2 0RF Rx Instructions: 1 po q 4 days Primary Care Provider: Minoo Miller Referrals: Minoo Miller DO [Primary Care Provider] - Nathaniel Kurtz DO [Med Staff - Active Staff] - Activity Restrictions/Additional Instructions: Call the orthopedic doctor for a follow-up appointment. Disposition Disposition: Home, Self Care
--- NOTE | 2023-03-18 11:10 | RAD_ITS ---
STUDY: X-RAY - LEFT ELBOW REASON FOR EXAM: Female, 48 years old. Pain following injury. TECHNIQUE: 3 view(s) of the elbow. COMPARISON: None. FINDINGS: Nondisplaced radial head fracture. Normal radiocapitellar and ulnotrochlear articulations. Joint effusion. RAD/Elbow min 3 Views IMPRESSION: Nondisplaced radial head fracture and joint effusion. Electronically Signed: Sergio Everett MD at 12:20 EST ,
--- NOTE | 2023-03-18 11:10 | RAD_ITS ---
STUDY: X-RAY - LEFT ANKLE REASON FOR EXAM: Female, 48 years old. Lateral pain following injury. TECHNIQUE: 3 view(s) of the ankle. COMPARISON: None. FINDINGS: Normal visualized distal tibia and fibula. Nondisplaced transverse fracture of the lateral malleolus. Normal tibiotalar articulation and ankle mortise. Normal visualized talus and calcaneus. The visualized subtalar, talonavicular, calcaneocuboid and tarsal articulations are normal. Lateral soft tissue swelling. RAD/Ankle min 3 Views IMPRESSION: Nondisplaced transverse fracture of the lateral malleolus with overlying soft tissue swelling. Electronically Signed: Sergio Everett MD at 12:20 EST ,
[2023-03-18] MEDS: Acetaminophen 500 MG Tablet 1000 MG PO (11:14)
--- NOTE | 2023-03-18 12:33 | RAD_ITS ---
STUDY: X-RAY - LEFT HAND REASON FOR EXAM: Female, 48 years old. Palmar pain. TECHNIQUE: 3 view(s) of the hand. COMPARISON: None. FINDINGS: Normal radiocarpal articulation. Normal distal radioulnar joint. Normal visualized carpal bones. Normal carpal articulations Normal carpometacarpal articulation of the thumb. Normal second through fifth carpometacarpal joints. Normal metacarpi. Normal metacarpophalangeal joint of the thumb. Normal interphalangeal joint of the thumb. Normal proximal and distal phalanges of the thumb. Normal metacarpophalangeal joints of the second through fifth fingers. Normal proximal and distal interphalangeal joints of the second through fifth fingers. Normal phalanges of the second through fifth fingers. The soft tissue structures are unremarkable. RAD/Hand Min 3 Views IMPRESSION: Normal x-ray examination of the hand. Electronically Signed: Sergio Everett MD at 13:02 EST ,
[2023-03-18] MEDS: oxyCODONE 5 MG Tablet PO (12:35)
[2023-03-18] MEDS: Ondansetron ODT 4 MG Tablet PO (12:35)
[2023-03-18 13:51] VITALS: BP 136/80; PULSE 75; RESP 16; O2SAT 100
== END 2023-03-18 13:52 | disposition home or self-care (01) ==
PROVIDERS: Emergency Provider Emergency Medicine; PCP Internal Medicine; Visit Provider Emergency Medicine
DX: S82.65XA Nondisplaced fracture of lateral malleolus of left fibula, initial encounter for closed fracture (principal); Y99.0 Civilian activity done for income or pay; S52.125A Nondisplaced fracture of head of left radius, initial encounter for closed fracture; F17.210 Nicotine dependence, cigarettes, uncomplicated; W17.89XA Other fall from one level to another, initial encounter; Y92.89 Other specified places as the place of occurrence of the external cause
CPT/HCPCS: 73080; 73130; 73610; 99284

== ENCOUNTER → 2023-03-29 | Outpatient (CLI) | payer OTHER, SELFPAY ==
--- NOTE | 2023-03-29 15:26 | CT_ITS ---
EXAM: CT LEFT LOWER EXTREMITY WITHOUT INTRAVENOUS CONTRAST, FOOT CLINICAL INDICATION: LEFT FOOT FX TECHNIQUE: Helically acquired images were obtained of the left foot without intravenous contrast. This CT exam was performed using one or more of the following dose reduction techniques: automated exposure control, adjustment of the mA and/or kV according to patient size, and/or use of iterative reconstruction technique. COMPARISON: No relevant prior studies available. FINDINGS: BONES/JOINTS: Acute avulsion-type fracture involves the lateral malleolus. Bony structures of the foot and ankle are otherwise intact. SOFT TISSUES: There is soft tissue swelling of the ankle. No radiopaque foreign body. CT/Extremity Lower without Contra IMPRESSION: Acute avulsion fracture of the lateral malleolus. Electronically Signed: Fabricio Quiroz MD at 16:51 EST ,
== END | disposition home or self-care (01) ==
LOC: CT 15:18
PROVIDERS: PCP Internal Medicine; Referring Provider Orthopaedic Surgery; Visit Provider Orthopaedic Surgery
DX: S82.65XA Nondisplaced fracture of lateral malleolus of left fibula, initial encounter for closed fracture (principal)
CPT/HCPCS: 73700

== ENCOUNTER → 2023-08-30 | Outpatient (CLI) | payer BC, SELFPAY ==
--- NOTE | 2023-08-30 16:28 | US_ITS ---
STUDY: THYROID ULTRASOUND REASON FOR EXAM: Female, 48 years old. THYROID NODULE -- thyroid nodule TECHNIQUE: Ultrasound evaluation of the thyroid was performed with real-time and static zaldivar-scale imaging. COMPARISON: 10/01/2022 FINDINGS: RIGHT LOBE: The right lobe of the thyroid gland measures 4.5 x 1.2 x 1.1 cm. There is a homogeneous echotexture. Nodule 1: No change in the 6 x 4 x 4 mm solid hypoechoic wider than tall smoothly margined nodule and no echogenic foci (TR 4) in the lateral right lobe consistent with an adenoma. Nodule 2: No change in the 12 x 6 x 9 mm solid hypoechoic wider than tall smoothly marginated nodule with no echogenic foci (TR 4) in the medial right lobe and follow-up ultrasound is recommended one year. LEFT LOBE: The left lobe of the thyroid gland measures 4.2 x 1.7 x 1.2 cm. There is a homogeneous echotexture. Nodule 3: No change in a 9 x 6 x 6 mm solid hypoechoic wider than tall smoothly marginated nodule with no echogenic foci (TR 4) (the mid left lobe consistent with an adenoma. Nodule 4: No change in the 12 x 6 x 7 mm solid hypoechoic wider than tall smoothly marginated nodule with no echogenic foci (TR 4) in the lateral left lobe and follow-up ultrasound is recommended in 1 year. ISTHMUS: The isthmus measures 3 mm thick. . The regional lymph nodes are normal. US/Thyroid IMPRESSION: No change in multinodular thyroid gland and follow-up ultrasound is recommended in 1 year. Electronically Signed: Danny Shaffer MD at 17:03 EDT ,
== END | disposition home or self-care (01) ==
LOC: US 16:26
PROVIDERS: PCP Internal Medicine; Referring Provider Internal Medicine; Visit Provider Internal Medicine
DX: E04.1 Nontoxic single thyroid nodule (principal)
CPT/HCPCS: 76536

== ENCOUNTER → 2023-11-02 | Outpatient (CLI) | payer BC, SELFPAY ==
[2023-11-02 11:41] LABS: Absolute Lymphocyte Count 2.04 X10^3/uL (0.83-4.51); Basophil# 0.09 X10^3/uL; Basophil% 1.5 % (0-1); Eosinophil# 0.33 X10^3/uL; Eosinophils% 5.5 % (0-5); Hematocrit 37.4 % (37-47); Hemoglobin 12.7 g/dL (12.0-15.0); Lymphocyte # 2.04 X10^3/ul (0.83-4.51); Mean Corpuscular Hgb 32.5 pg (27.0-32.0); Mean Corpuscular Volume 95.7 fL (81-99); Mean Platelet Vol. 8.8 fl (6.2-12.0); Monocyte# 0.55 X10^3/uL; Monocyte% 9.2 % (0-10); NRBC Flagged by Analyzer 0 % (0-5); Neutrophil # 2.98 X10^3/uL (2.7-7.7); Neutrophil % 49.6 % (47-70); Platelet Count 409 K/mm3 (150-450); RBC Distribution Width CV 12.3 % (11.6-14.6); RBC Distribution Width SD 42.9 fl (35.1-43.9); Red Blood Count 3.91 M/mm3 (4.2-5.4)
[2023-11-02 11:47] LABS: Erythrocyte Sedimentation Rate 3 mm/hr (0-30)
[2023-11-02 11:55] LABS: ALB/GLOB Ratio 1.1 RATIO (0.9-2.4); AST(SGOT) 12 U/L (15-37); Alanine Aminotransfer ALT/SGPT 17 U/L (13-56); Albumin, Serum 3.6 g/dL (3.2-5.0); Alkaline Phosphatase 36 U/L (45-117); Anion Gap 3 (5-15); BUN 12 mg/dL (7-18); BUN/Creat Ratio 19.9 RATIO (10-20); CRP < 2.90 mg/L (0.0-3.0); Calcium,Total 9.5 mg/dL (8.5-10.1); Chloride 108 mmol/L (98-107); EST Glomerular Filtration Rate 112 mL/min (>60); Est Glom Filt Rate - Afr Amer 136 mL/min (>60); Globulin 3.3 g/dL (2.2-4.2); Glucose 82 mg/dL (74-106); Potassium 3.7 mmol/L (3.5-5.1); Protein, Total 6.9 g/dL (6.4-8.2); Rheumatoid Factor < 10.0 IU/mL (<15); Sodium Level 140 mmol/L (136-145)
[2023-11-04 13:07] LABS: ANTINUCLEAR ANTIBODIES DIRECT Negative (Negative)
== END | disposition home or self-care (01) ==
LOC: LAB 11:04
PROVIDERS: PCP Internal Medicine; Referring Provider Internal Medicine; Visit Provider Internal Medicine
DX: D75.839 Thrombocytosis, unspecified (principal)
CPT/HCPCS: 36415; 80053; 85025; 85652; 86038; 86140; 86431

== ENCOUNTER → 2023-11-14 | Outpatient (CLI) | payer BC, SELFPAY ==
--- NOTE | 2023-11-14 14:32 | BI_ITS ---
MAMMOGRAPHY - BILATERAL DIAGNOSTIC REASON FOR EXAM: Female, 48 years old. One month history of a palpable lump in the upper-outer quadrant of the left breast. PERTINENT HISTORY: Non-contributory. TECHNIQUE: Digital bilateral breast alejandro (3D mammographic acquisition) in the CC and MLO projections. 2-D mediolateral oblique (MLO) and craniocaudad (CC) views of both breasts were obtained. CAD: Full Field Digital Mammography with Computer Added Detection was performed. COMPARISON: Comparison is made with prior study November 20, 2022 and March 16, 2021. FINDINGS: Breast Composition: The breasts are extremely dense, which lowers the sensitivity of mammography. There are no dominant masses or suspicious calcifications. Stable asymmetry of breast tissue with more breast tissue is seen in the upper-outer quadrant of the left breast as compared to the right side. No other significant abnormalities are identified. There has been no significant change since the prior study. BI/DIAG MAMM W/CAD, BILAT IMPRESSION: Stable bilateral diagnostic mammogram. With the patient''s history of a palpable lump in the left upper-outer quadrant, correlation with ultrasound recommended. ASSESSMENT CATEGORY: BIRADS Category 0: Incomplete. Need additional imaging evaluation. A letter regarding these results will be sent to the patient by the facility within 30 days. Approximately 10% of breast cancers are not detected by mammography. A normal mammogram should not delay biopsy of a clinically suspicious abnormality. Electronically Signed: Sergio Everett MD at 15:20 EDT ,
--- NOTE | 2023-11-14 14:32 | US_ITS ---
STUDY: ULTRASOUND BREAST - LEFT REASON FOR EXAM: Female, 48 years old. Palpable lump left breast. TECHNIQUE: Axial and longitudinal images of the LEFT breast were performed with a high resolution ultrasound transducer. # OF IMAGES: [id number] COMPARISON: Comparison is made with prior mammogram done earlier in the day as well as prior sonogram of the left breast dated March 16, 2021. FINDINGS: LEFT Breast: The upper outer quadrant of the left breast was examined with ultrasound. 3 subcentimeter cysts are seen at the 2:00 position of breast at 5 and 6 8 cm from the nipple. The largest measures 7 mm x 6 mm x 3 mm. US/Breast Limited Unilateral IMPRESSION: 3, subcentimeter cysts are seen at the 2:00 position of the breast at 5 and 8 cm from nipple. ASSESSMENT CATEGORY: BIRADS Category 2: Benign. A letter regarding these results will be sent to the patient by the facility within 30 days. Electronically Signed: Sergio Everett MD at 9:15 EDT ,
== END | disposition home or self-care (01) ==
LOC: OPBI 14:31
PROVIDERS: PCP Internal Medicine; Referring Provider Internal Medicine; Visit Provider Internal Medicine
DX: N63.25 Unspecified lump in the left breast, overlapping quadrants (principal)
CPT/HCPCS: 76642; 77062; 77066; G0279

== ENCOUNTER → 2024-01-29 | Outpatient (CLI) | payer BC, SELFPAY ==
--- NOTE | 2024-01-29 12:51 | NM_ITS ---
CLINICAL: 48-year-old female with history of barrett colored stool. RADIONUCLIDE HEPATOBILIARY SCINTIGRAPHY COMPARISON: None available FINDINGS: Following the intravenous administration of 5.4 mCi of 99m Tc Mebrofenin, hepatobiliary images reveal: 1. Relatively prompt and homogeneous radiopharmaceutical concentration is noted by a normal sized liver. No parenchymal defects are identified. 2. Gallbladder activity is identified at 30 minutes post radiopharmaceutical administration. 3. Small intestinal tract is not visualized during 60 minutes of pre-CCK sequential imaging. Small bowel activity is identified following the administration of cholecystokinin. 4. Washout of the radiopharmaceutical by the hepatic parenchyma appears qualitatively normal. Cholecystokinin (0.02 ug/kg) was administered intravenously over a 30-minute period. The post CCK gallbladder ejection fraction calculated at 20 minutes following Cholecystokinin administration was noted to be 67.0 % (normal greater than 35%). During 30 minutes of post CCK imaging, there is no scintigraphic evidence of reflux of the radiotracer into the common hepatic duct or refilling of the gallbladder. The gallbladder region of interest appears to encompass part of the intestinal tract on the post CCK 31 minute acquisition. NM/Hepatobilliary Img w/Pharm Int IMPRESSION: 1. A gallbladder ejection fraction calculated to be greater than 35% following the administration of Cholecystokinin makes the probability of functional hepatobiliary disease (gallbladder and/or sphincter of Oddi dyskinesia) and/or organic hepatobiliary disease (chronic acalculous cholecystitis and/or cystic duct syndrome) to be low. (Phong Espitia et al, Journal of Nuclear Medicine 32:1695, 1990). 2. If the gallbladder demonstrates definitive refilling following cholecystokinin administration, sphincter of Oddi dysfunction may be present. Correlation with sphincter of Oddi manometry may be of benefit. (Veronica and Veronica, J Nucl Med 38:1824, 1997). Electronically Signed: Danny Logan DO at 9:39 EST ,
== END | disposition home or self-care (01) ==
LOC: NM 12:49
PROVIDERS: PCP Internal Medicine; Referring Provider Internal Medicine; Visit Provider Internal Medicine
DX: R19.5 Other fecal abnormalities (principal)
CPT/HCPCS: 78227; A9537; J2805

== ENCOUNTER → 2024-03-24 | Outpatient (CLI) | payer BC, SELFPAY ==
--- NOTE | 2024-03-24 15:53 | BD_ITS ---
PROCEDURE: DEXA BONE DENSITY STUDY REASON FOR EXAM: F, age 49 y/o. Patient is postmenopausal.. TECHNIQUE: DEXA scan of the lumbar spine and both hips. COMPARISON: None. FINDINGS: Lumbar Spine (L1-L4): g/cm2 (0.991)/T-score (-0.5)/Z-score (0.2) findings are suggestive of normal with a low fracture risk. Left Femur Total: g/cm2 (0.936)/T-score (0.0)/Z-score (0.4) Left Femoral Neck: g/cm2 (0.784)/T-score (-0.6)/Z-score (0.2) Right Femur Total: g/cm2 (0.894)/T-score (-0.4)/Z-score (0.1) Right Femoral Neck: g/cm2 (0.797)/T-score (-0.5)/Z-score 0.3 BD/Dexa Bone Density Study IMPRESSION: (The patient is considered normal. Low risk of fracture. Reading Location: [place] [id number]
== END | disposition home or self-care (01) ==
LOC: OPBD 15:46
PROVIDERS: PCP Internal Medicine; Referring Provider Internal Medicine; Visit Provider Internal Medicine
DX: S82.892A Other fracture of left lower leg, initial encounter for closed fracture (principal); Z78.0 Asymptomatic menopausal state; X58.XXXA Exposure to other specified factors, initial encounter
CPT/HCPCS: 77080

== ENCOUNTER → 2024-12-15 | Outpatient (CLI) | payer BC, SELFPAY ==
--- NOTE | 2024-12-15 15:55 | US_ITS ---
PROCEDURE: THYROID 12/15/2024 REASON FOR EXAM: THYROID NODULE TECHNIQUE: Procedure Code: USTHY Modality: US Procedure: THYROID FINDINGS: Right thyroid lobe size: 4.4 x 1.6 x 1.3 cm Left thyroid lobe size: 4.4 x 1.7 x 1.2 cm Isthmus: 0.3 cm Background parenchymal echotexture is homogeneous. Nodules: 1. Lobe: Right, Location: Upper, Size: 0.7 x 0.5 x 0.5 cm, Stability: N/A Composition: Mixed cystic and solid (+1) Echogenicity: Hypoechoic (+2) Margin: Smooth (+0) Shape: Wider than tall (+0) Echogenic Foci: None (+0) TI-RADS: <2 = TR 1 * 2 = TR 2 * 3 = TR 3 * 4-6 = TR 4 * >6 = TR 5 2. Lobe: Right, Location: Mid, Size: 1.4 x 0.9 x 0.6 cm, Stability: N/A Composition: Mixed cystic and solid (+1) Echogenicity: Hypoechoic (+2) Margin: Smooth (+0) Shape: Wider than tall (+0) Echogenic Foci: None (+0) TI-RADS: <2 = TR 1 * 2 = TR 2 * 3 = TR 3 * 4-6 = TR 4 * >6 = TR 5 3. Lobe: Left, Location: Upper, Size: 0.7 x 0.9 x 0.4 cm, Stability: N/A Composition: Mixed cystic and solid (+1) Echogenicity: Hypoechoic (+2) Margin: Smooth (+0) Shape: Wider than tall (+0) Echogenic Foci: None (+0) TI-RADS: <2 = TR 1 * 2 = TR 2 * 3 = TR 3 * 4-6 = TR 4 * >6 = TR 5 4. Lobe: Left, Location: Mid, Size: 1.2 x 0.9 x 0.5 cm, Stability: N/A Composition: Mixed cystic and solid (+1) Echogenicity: Hypoechoic (+2) Margin: Smooth (+0) Shape: Wider than tall (+0) Echogenic Foci: None (+0) TI-RADS: <2 = TR 1 * 2 = TR 2 * 3 = TR 3 * 4-6 = TR 4 * >6 = TR 5 5. Lobe: Left, Location: Lower, Size: 1.3 x 0.9 x 0.6 cm, Stability: N/A Composition: Mixed cystic and solid (+1) Echogenicity: Hypoechoic (+2) Margin: Smooth (+0) Shape: Wider than tall (+0) Echogenic Foci: None (+0) TI-RADS: <2 = TR 1 * 2 = TR 2 * 3 = TR 3 * 4-6 = TR 4 * >6 = TR 5 No suspicious adenopathy US/Thyroid IMPRESSION: Normal-sized homogeneous thyroid gland with bilateral solid and cystic nodules. Because of their size they can all be followed sonographically at 1 3 and 5 years. No suspicious solid thyroid nodule No suspicious adenopathy RECOMMENDATION: Based on most suspicious nodule. Nodule size = largest diameter Only evaluate nodule if =>5 mm. Growth > 20% in 2 dimensions = worsening. Follow up to 4 nodules. Recommend biopsy for no more than 2 nodules. Reading Location: [id number]
== END | disposition home or self-care (01) ==
LOC: US 15:54
PROVIDERS: PCP Internal Medicine; Referring Provider Internal Medicine; Visit Provider Internal Medicine
DX: E04.1 Nontoxic single thyroid nodule (principal)
CPT/HCPCS: 76536

== ENCOUNTER → 2024-12-17 | Outpatient (CLI) | payer BC, SELFPAY ==
--- NOTE | 2024-12-17 15:50 | BI_ITS ---
EXAM: SCRN MAMM (CAD)W/ARABELLA BILAT DATE: 12/17/2024 CLINICAL HISTORY: F, Age 49 y/o , SCREENING TECHNIQUE: Procedure Code: [id number] Modality: MG Procedure: SCRN MAMM (CAD)W/ARABELLA BILAT COMPARISON: Prior exam(s) were compared FINDINGS: TISSUE DENSITY: The breasts are extremely dense, which lowers the sensitivity of mammography. Bilateral Breast Mammographic Findings: No suspicious masses, calcifications or other abnormalities are identified. BI/SCRN MAMM (CAD)W/ARABELLA BILAT IMPRESSION: No mammographic evidence of malignancy in either breast. OVERALL FINAL ASSESSMENT BI-RADS 1: NEGATIVE. RECOMMENDATION: Routine annual follow-up in 1 Year Additional Recommendation none A letter with findings and recommendations will be mailed to the patient. Reading Location: [id number]
== END | disposition home or self-care (01) ==
LOC: OPBI 15:48
PROVIDERS: PCP Internal Medicine; Referring Provider Internal Medicine; Visit Provider Internal Medicine
DX: Z12.31 Encounter for screening mammogram for malignant neoplasm of breast (principal)
CPT/HCPCS: 77063; 77067

== ENCOUNTER → 2024-12-31 | Outpatient (CLI) | payer BC, SELFPAY ==
[2024-12-31 16:43] LABS: PTHIN 42 pg/mL (11-61)
[2024-12-31 17:02] LABS: Calcium 10.3 mg/dL (7.6-11.0)
[2024-12-31 17:21] LABS: FOLATES,SERUM (FOLIC ACID) 10.50 ng/mL (4.60-34.80)
[2024-12-31 17:31] LABS: Vitamin B12 2196 pg/mL (180-914)
== END | disposition home or self-care (01) ==
LOC: LAB 15:51
PROVIDERS: PCP Internal Medicine; Referring Provider Internal Medicine; Visit Provider Internal Medicine
DX: R79.89 Other specified abnormal findings of blood chemistry (principal); E83.52 Hypercalcemia
CPT/HCPCS: 36415; 82310; 82607; 82746; 83970; 85652; 86200; 86431